=== PATIENT | female | born 1955 | race Caucasian/White ===

== ENCOUNTER 2018-10-19 13:06 | Emergency (ER) | payer BC, SELFPAY ==
[2018-10-19] VITALS (23 sets, daily range): BP systolic 96–184; BP diastolic 61–124; PULSE 77–110; RESP 15–30; TEMP 36.5–36.7; O2SAT 96–100
--- NOTE | 2018-10-19 13:20 | DI.CT_ITS ---
SYMPTOMS/DIAGNOSIS: NOTABLE HEMOPTYSIS, COUGH, LEFT CRACKLE CT ANGIOGRAPHY OF THE CHEST: CT angiography was performed with multi slice acquisition and multi planar and 3D reconstruction. CT scan of the chest was performed according to the pulmonary embolus protocol. There is no evidence of a pulmonary embolus. The thoracic aorta is intact. No evidence of aneurysm or dissection. The heart size is within normal limits. No significant pericardial effusion is seen. No evidence of right ventricular dysfunction is present. No evidence of thoracic adenopathy, pleural effusion or pneumothorax is identified. There is a rounded soft tissue mass-like area in the left lower lobe posteriorly sitting on the diaphragm. It measures 7.5 x 6.1 x 5.4 cm. Degenerative changes are seen in the spine. No aggressive osseous lesions are identified. IMPRESSION: 1. No evidence of a pulmonary embolus, thoracic aortic dissection or aneurysm. 2. A 7.5 x 6.1 x 5.4 cm soft tissue mass-like region in the left lower lobe. Primary diagnostic concern is for primary pulmonary carcinoma. Inflammatory or infectious etiology may be considered. PET scan and/or biopsy should be considered for further evaluation. The findings were discussed with Dr. Paniagua of the Emergency Department on the date of the examination.
--- NOTE | 2018-10-19 13:24 | W.ED.GENAD ---
Discharge Plan Disposition Patient Disposition: OTHER Condition: Stable Discharge Details Chief Complaint: RespSymp Clinical Impression: Cough with hemoptysis, Lung mass Primary Care Provider: Cr Pappas ED Provider: Reynaldo Paniagua Home Meds and New Rx's Prescriptions: No Action ibuprofen 200 MG capsule 600 mg PO Q6H PRN PRNRF: 0 Centrum Silver 1 EACH tablet 1 ea PO DAILY RF: 0 Medical Decision Making This is a pleasant 63-year-old female with past medical history of uterine cancer in 2012, blood clots in the past, nephrectomy because she gave 1 of her kidneys to her mother who had glomerulonephritis, who is on no blood thinners. She presents today for hemoptysis for the last 2 days and a cough that is been going on since August. Lung sounds demonstrate crackles notably in the left. She is tachycardic, but no hypoxic. Blood pressure is elevated. No signs of significant pallor. Differential includes malignancy, Laurel's, PE, chronic severe bronchitis. We will get a CT angiogram to evaluate after checking renal function. 6:15 PM Patient's laboratory workup has returned, hemoglobin and platelets are stable, PT PTT and INR stable. Renal function and electrolytes are normal. Troponin and EKG are benign. The patient has been typed and screened. CT scan results have returned and demonstrates evidence of a large 6 cm x 7 cm mass in her left lung. This is potentially malignancy. The patient's hemoptysis is continued but has shown some notable improvement while here in the ED. She is now coughing up much smaller amounts of blood at this current time. Her airway is clear, she shows no signs of significant respiratory distress at this time. No need for emergent airway, or intubation at this time. Patient clearly needs more definitive management of biopsy, and potential cardiothoracic surgery. We did contact [facility] but they state that they have no beds and refused transfer, we did contact the [facility], and state that they also have no beds are unable to transfer. They did offer potential bed placement in the next 48 hours, and recommended admission at our hospital. I did contact Dr. Avila and discussed the case with her, she states that she feels uncomfortable with the clinical nature of the patient and although she is stable now she does have the potential to decompensate if the bleeding does get worse, and no definitive management is available here. We did contact both [facility], and [facility], and they also do not have any bed availability. I did contact [facility], and they state that although their bed status is full, they would gladly accept the patient in the ED for assessment. I spoke with the Dr. Del Rio, she agreed to accept the patient in the ER to ER transfer. Patient shows no signs of airway compromise at this time, and does appear more stable. We did discuss potential intubation and understanding the risks the patient would like to hold off for the time being. Given her clinical stability at this time, and the improvement of her hemoptysis I do feel that this is reasonable. Patient will be transferred by [facility]. I have extensively reviewed the treatment plan with the patient. I have addressed all patient concerns at this time. I have also discussed the plan with the admitting physician and they agree with the current assessment and plan and have agreed to assume responsibility for the patient. All parties demonstrate verbal understanding and agreement with our assessment and plan at this time. EKG 13: 36 Rate 97, intervals normal, sinus rhythm, no significant ST elevations or depressions, inverted T wave in V1, lead III, no other significant abnormalities. CT ANGIOGRAPHY OF THE CHEST: CT angiography was performed with multi slice acquisition and multi planar and 3D reconstruction. CT scan of the chest was performed according to the pulmonary embolus protocol. There is no evidence of a pulmonary embolus. The thoracic aorta is intact. No evidence of aneurysm or dissection. The heart size is within normal limits. No significant pericardial effusion is seen. No evidence of right ventricular dysfunction is present. No evidence of thoracic adenopathy, pleural effusion or pneumothorax is identified. There is a rounded soft tissue mass-like area in the left lower lobe posteriorly sitting on the diaphragm. It measures 7.5 x 6.1 x 5.4 cm. Degenerative changes are seen in the spine. No aggressive osseous lesions are identified. IMPRESSION: 1. No evidence of a pulmonary embolus, thoracic aortic dissection or aneurysm. 2. A 7.5 x 6.1 x 5.4 cm soft tissue mass-like region in the left lower lobe. Primary diagnostic concern is for primary pulmonary carcinoma. Inflammatory or infectious etiology may be considered. PET scan and/or biopsy should be considered for further evaluation. The findings were discussed with Dr. Paniagua of the Emergency Department on the date of the examination. HPI General Date/Time Provider Initiated Documentation: 10/19/18 13:12. HPI Narrative: This is a 63-year-old female with a past medical history of uterine cancer in 2012, nephrectomy as a donation to her mother who had glomerulonephritis, history of blood clots in the past, and diabetes mellitus type 2 who presents today for evaluation of hemoptysis. Patient states that she had a cough that began this August, it was around the time of taking a trip to [place]. Since then the cough is continued however over the last 2 days it is notably worsened and she has been spitting up mild to moderate amounts of blood. She feels short of breath, and like there is something itching in her lungs. She denies any significant chest pain, arm neck or shoulder pain, history of cardiac disease, history of tobacco use, or familial history of lung cancer. She is not on any blood thinners. She has no other complaints at this time. No other modifying factors. Related Data Home Medications Medication Instructions Recorded Confirmed ibuprofen 600 mg PO Q6H PRN PRN 05/03/13 11/08/17 Centrum Silver 1 ea PO DAILY 11/04/17 11/08/17 Allergies Allergy/AdvReac Type Severity Reaction Status Date / Time adhesive Allergy Intermediate Bubble-type Unverified 10/19/18 13:15 rash oxycodone HCl [From Percocet] AdvReac Severe Nausea Unverified 10/19/18 13:15 Environmental Allergies Allergy Intermediate Watery Uncoded 10/19/18 13:15 eyes, sneezing General Stated Complaint: RespSymp DONALDO: 3 Review of Systems Review of Systems All systems reviewed & are unremarkable except as noted in HPI and below PFSH Medical History DM (diabetes mellitus) History of nephrectomy, unilateral Obesity Surgical History Colonoscopy - MAC (11/08/17) Nephrectomy Vaginal hysterectomy Family History Grandmother Malignant hyperthermia Colon cancer Maternal Aunt Colon cancer Social History Smoking and Tabacco status: Never Exam Narrative Exam Narrative: 1.Const: Well-nourished, Well-developed, appearing stated age 2.Eyes: PERRL, no conjunctival injection, and symmetrical lids. No conjunctival pallor. 3.ENT: Atraumatic external nose and ears. Moist MM. Neck: Symmetric, trachea midline, No thyromegaly. 4.CVS: +S1/S2, No murmurs or gallops. Peripheral pulses 2+ and equal in all extremities. Brisk capillary refill in all extremities. 5.RESP: Mildly tachypneic, notable crackles in the left lower lung izaguirre. No significant wheezes. Questionable rhonchi. Notable hemoptysis. 6.GI: Soft, Nontender/Nondistended, No hepatosplenomegaly. No guarding or rebound. 7.MSK: Normocephalic/Atraumatic, Extremities w/o deformity or ttp No cyanosis or clubbing, Normal movement of all extremities. No calf tenderness. 8.Skin: Warm, Dry. No rashes or lesions. 9.Neuro: metal baler II-XII grossly intact. Sensation grossly intact, no focal neurologic deficits. 10.Psych: (AAO) x3. Appropriate mood and affect Course Vital Signs Temperature 36.7 C 10/19/18 13:10 Pulse 110 H 10/19/18 13:10 Respiratory Rate 20 10/19/18 13:10 Blood Pressure 184/81 H 10/19/18 13:10 Pulse Oximetry 96 10/19/18 13:10 Temperature 36.7 C 10/19/18 13:10 Temperature Source Temporal Artery Scan 10/19/18 13:10 Pulse 110 H 10/19/18 13:10 Respiratory Rate 20 10/19/18 13:10 Respiratory Effort Non-Labored 10/19/18 13:15 Respiratory Depth Normal 10/19/18 13:15 Blood Pressure 184/81 H 10/19/18 13:10 Blood Pressure Position Sitting 10/19/18 13:10 Pulse Oximetry 96 10/19/18 13:10 Oxygen Delivery Method Room Air 10/19/18 13:10 Oxygen Flow Rate 0 10/19/18 13:10 Pain Level 0 10/19/18 13:10
--- NOTE | 2018-10-19 13:29 | ED.GENADUL_ITS ---
Discharge Plan Disposition Patient Disposition: OTHER Condition: Stable Discharge Details Chief Complaint: RespSymp Clinical Impression: Cough with hemoptysis, Lung mass Primary Care Provider: Cr Pappas ED Provider: Reynaldo Paniagua Home Meds and New Rx's Prescriptions: No Action ibuprofen 200 MG capsule 600 mg PO Q6H PRN PRNRF: 0 Centrum Silver 1 EACH tablet 1 ea PO DAILY RF: 0 Medical Decision Making This is a pleasant 63-year-old female with past medical history of uterine cancer in 2012, blood clots in the past, nephrectomy because she gave 1 of her kidneys to her mother who had glomerulonephritis, who is on no blood thinners. She presents today for hemoptysis for the last 2 days and a cough that is been going on since August. Lung sounds demonstrate crackles notably in the left. She is tachycardic, but no hypoxic. Blood pressure is elevated. No signs of significant pallor. Differential includes malignancy, Laurel's, PE, chronic severe bronchitis. We will get a CT angiogram to evaluate after checking renal function. 6:15 PM Patient's laboratory workup has returned, hemoglobin and platelets are stable, PT PTT and INR stable. Renal function and electrolytes are normal. Troponin and EKG are benign. The patient has been typed and screened. CT scan results have returned and demonstrates evidence of a large 6 cm x 7 cm mass in her left lung. This is potentially malignancy. The patient's hemoptysis is continued but has shown some notable improvement while here in the ED. She is now coughing up much smaller amounts of blood at this current time. Her airway is clear, she shows no signs of significant respiratory distress at this time. No need for emergent airway, or intubation at this time. Patient clearly needs more definitive management of biopsy, and potential cardiothoracic surgery. We did contact [facility] but they state that they have no beds and refused transfer, we did contact the [facility], and state that they also have no beds are unable to transfer. They did offer potential bed placement in the next 48 hours, and recommended admission at our hospital. I did contact Dr. Avila and discussed the case with her, she states that she feels uncomfortable with the clinical nature of the patient and although she is stable now she does have the potential to decompensate if the bleeding does get worse, and no definitive management is available here. We did contact both [facility], and [facility], and they also do not have any bed availability. I did contact [facility], and they state that although their bed status is full, they would gladly accept the patient in the ED for assessment. I spoke with the Dr. Del Rio, she agreed to accept the patient in the ER to ER transfer. Patient shows no signs of airway compromise at this time, and does appear more stable. We did discuss potential intubation and understanding the risks the patient would like to hold off for the time being. Given her clinical stability at this time, and the improvement of her hemoptysis I do feel that this is reasonable. Patient will be transferred by [facility]. I have extensively reviewed the treatment plan with the patient. I have addressed all patient concerns at this time. I have also discussed the plan with the admitting spencer sician and they agree with the current assessment and plan and have agreed to assume responsibility for the patient. All parties demonstrate verbal understanding and agreement with our assessment and plan at this time. EKG 13: 36 Rate 97, intervals normal, sinus rhythm, no significant ST elevations or depressions, inverted T wave in V1, lead III, no other significant abnormalities. CT ANGIOGRAPHY OF THE CHEST: CT angiography was performed with multi slice acquisition and multi planar and 3D reconstruction. CT scan of the chest was performed according to the pulmonary embolus protocol. There is no evidence of a pulmonary embolus. The thoracic aorta is intact. No evidence of aneurysm or dissection. The heart size is within normal limits. No significant pericardial effusion is seen. No evidence of right ventricular dysfunction is present. No evidence of thoracic adenopathy, pleural effusion or pneumothorax is identified. There is a rounded soft tissue mass-like area in the left lower lobe posteriorly sitting on the diaphragm. It measures 7.5 x 6.1 x 5.4 cm. Degenerative changes are seen in the spine. No aggressive osseous lesions are identified. IMPRESSION: 1. No evidence of a pulmonary embolus, thoracic aortic dissection or aneurysm. 2. A 7.5 x 6.1 x 5.4 cm soft tissue mass-like region in the left lower lobe. Primary diagnostic concern is for primary pulmonary carcinoma. Inflammatory or infectious etiology may be considered. PET scan and/or biopsy should be considered for further evaluation. The findings were discussed with Dr. Paniauga of the Emergency Department on the date of the examination. HPI General Date/Time Provider Initiated Documentation: 10/19/18 13:12 . HPI Narrative: This is a 63-year-old female with a past medical history of uterine cancer in 2012, nephrectomy as a donation to her mother who had glom erulonephritis, history of blood clots in the past, and diabetes mellitus type 2 who presents today for evaluation of hemoptysis. Patient states that she had a cough that began this August, it was around the time of taking a trip to [place]. Since then the cough is continued however over the last 2 days it is notably worsened and she has been spitting up mild to moderate amounts of blood. She feels short of breath, and like there is something itching in her lungs. She denies any significant chest pain, arm neck or shoulder pain, history of cardiac disease, history of tobacco use, or familial history of lung cancer. She is not on any blood thinners. She has no other complaints at this time. No other modifying factors. Related Data Home Medications Medication Instructions Recorded Confirmed ibuprofen 600 mg PO Q6H PRN PRN 05/03/13 11/08/17 Centrum Silver 1 ea PO DAILY 11/04/17 11/08/17 Allergies Allergy/AdvReac Type Severity Reaction Status Date / Time adhesive Allergy Intermediate Bubble-type Unverified 10/19/18 13:15 rash oxycodone HCl [From Percocet] AdvReac Severe Nausea Unverified 10/19/18 13:15 Environmental Allergies Allergy Intermediate Watery Uncoded 10/19/18 13:15 eyes, sneezing General Stated Complaint: RespSymp DONALDO: 3 Review of Systems Review of Systems All systems reviewed & are unremarkable except as noted in HPI and below PFSH Medical History DM (diabetes mellitus) History of nephrectomy, unilateral Obesity Surgical History Colonoscopy - MAC (11/08/17) Nephrectomy Vaginal hysterectomy Family History Grandmother Malignant hyperthermia Colon cancer Maternal Aunt Colon cancer Social History Smoking and Tabacco status: Never Exam Narrative Exam Narrative: 1.Const: Well-nourished, Well-developed, appearing stated age 2.Eyes: PERRL, no conjunctival injection, and symmetrical lids. No conjunctival pallor. 3.ENT: Atraumatic external nose and ears. Moist MM. Neck: Symmetric, trachea midline, No thyromegaly. 4.CVS: +S1/S2, No murmurs or gallops. Peripheral pulses 2+ and equal in all extremities. Brisk capillary refill in all extremities. 5.RESP: Mildly tachypneic, notable crackles in the left lower lung izaguirre. No significant wheezes. Questionable rhonchi. Notable hemoptysis. 6.GI: Soft, Nontender/Nondistended, No hepatosplenomegaly. No guarding or rebound. 7.MSK: Normocephalic/Atraumatic, Extremities w/o deformity or ttp No cyanosis or clubbing, Normal movement of all extremities. No calf tenderness. 8.Skin: Warm, Dry. No rashes or lesions. 9.Neuro: support team member II-XII grossly intact. Sensation grossly intact, no focal neurologic deficits. 10.Psych: (AAO) x3. Appropriate mood and affect Course Vital Signs Temperature 36.7 C 10/19/18 13:10 Pulse 110 H 10/19/18 13:10 Respiratory Rate 20 10/19/18 13:10 Blood Pressure 184/81 H 10/19/18 13:10 Pulse Oximetry 96 10/19/18 13:10 Temperature 36.7 C 10/19/18 13:10 Temperature Source Temporal Artery Scan 10/19/18 13:10 Pulse 110 H 10/19/18 13:10 Respiratory Rate 20 10/19/18 13:10 Respiratory Effort Non-Labored 10/19/18 13:15 Respiratory Depth Normal 10/19/18 13:15 Blood Pressure 184/81 H 10/19/18 13:10 Blood Pressure Position Sitting 10/19/18 13:10 Pulse Oximetry 96 10/19/18 13:10 Oxygen Delivery Method Room Air 10/19/18 13:10 Oxygen Flow Rate 0 10/19/18 13:10 Pain Level 0 10/19/18 13:10
[2018-10-19] MEDS: Normal Saline 1,000 ML 1000 ML IV (13:39)
[2018-10-19 13:45] LABS: Abs Immature Grans 0.03 k/cumm (0.0-0.09); Absolute Basophil Count 0.03 k/cumm (0.0-0.2); Absolute Eosinophil Count 0.17 k/cumm (0.0-0.7); Absolute Lymphocyte Count 1.85 k/cumm (1.2-3.4); Absolute Monocyte Count 0.64 k/cumm (0.11-0.7); Absolute Neutrophil Count 6.68 k/cumm (1.2-6.7); Basophils % 0.3; Eosinophils % 1.8; HGB 12.9 g/dL (12.0-15.5); Immature Grans % 0.3; Lymphocytes % 19.7; Mean Corp. HGB Concentration 31.5 g/dL (32.0-36.0); Mean Corpuscular Volume 89.1 fL (80-95); Mean Platelet Volume 10.7 fL (8.0-11.0); Monocytes % 6.8; Neutrophils % 71.1; Platelet Count 242 x1000/uL (130-400); RBC Distribution Width 13.2 % (11.7-14.6)
[2018-10-19 13:52] LABS: ALT 20 U/L (12-78); AST 14 U/L (15-37); Albumin 3.3 g/dL (3.4-5.0); Alkaline Phosphatase 84 U/L (46-116); Anion Gap 8.2 mmol/L (3-11); BUN 15 mg/dL (7-18); Bilirubin, Total 0.2 mg/dL (0.2-1.0); CO2 28.8 mmol/L (21.0-32.0); Calcium 9.1 mg/dL (8.5-10.1); Chloride 104 mmol/L (98-107); Glucose 205 mg/dL (70-100); Potassium 3.8 mmol/L (3.5-5.1); Sodium 141 mmol/L (136-145); Total Protein 7.8 g/dL (6.4-8.2)
[2018-10-19 13:59] LABS: BE 0.9 mmol/L (-3-3); HCO3 26 mmol/L (22-28); pCO2 41 mmHg (34-47); pH 7.41 (7.35-7.45); pO2 75 mmHg (83-108); sO2 95 % (94-98); tCO2 23 mmol/L (22-29)
[2018-10-19 14:01] LABS: PTT Activated 23.4 sec (21.0-31.4); Prothrombin Time 9.5 sec (9.3-11.0)
[2018-10-19 14:02] LABS: FIO2 0.21 %; FIO2L Room Air L; Site Right Brachial
[2018-10-19 14:12] LABS: Troponin I < 0.02 ng/mL (0.00-0.06)
[2018-10-19] MEDS: Omnipaque 350 MG/ML 100 ML BTL IJ (14:45)
== END 2018-10-19 19:10 | disposition other institution (70) ==
PROVIDERS: Emergency Provider Student in an Organized Health Care Education/Training Program; PCP General Practice
DX: R04.2 Hemoptysis (principal); R91.8 Other nonspecific abnormal finding of lung field
CPT/HCPCS: 36415; 71275; 80053; 82805; 86850; 86900; 86901; 93005; 96360; 99285; 84484; 85025; 85610; 85730; 93010; 99284; J3490

== ENCOUNTER 2019-02-17 16:13 | Outpatient (REF) | payer BC, SELFPAY ==
--- NOTE | 2019-02-17 15:50 | PAPFT_PTH ---
PATIENT: Myra Valencia LOC: [facility] U#:[id number] AGE/SX: 63/F ROOM: RE02/17/[address]: Karla Lakhani MD : [id number] BED: DIS: 02/17/2019 SPEC #: [id number] RECD: 02/17/19 17:17 STATUS: TESSIE REAreli #: [id number] VENECIA: 02/17/19 15:[address]: Karla Lakhani DEPT: [facility] Cytology RECD BY: Kate Spencer ENTERED: 02/17/19 17:17 SP TYPE: PAPFT OTHR DR: Cr Pappas Tissues: 1 - CX/ENDOCX FOR PAP SMEARS Procedures: PAP THIN PREP/[facility] Screening Comments: [id number] (VAGINAL HPV SENT TO [facility])
[2019-02-23 20:51] LABS: HPV High Risk type 16, PCR Negative (Negative); HPV High Risk type 18, PCR Negative (Negative); HPV other High Risk types, PCR Negative (Negative); Specimen Source VAGINAL
== END 2019-02-17 16:33 ==
LOC: LBN 16:13
PROVIDERS: PCP General Practice; Visit Provider Obstetrics & Gynecology
DX: Z12.4 Encounter for screening for malignant neoplasm of cervix (principal); Z11.51 Encounter for screening for human papillomavirus (HPV)
CPT/HCPCS: 87624; 88142

== ENCOUNTER 2019-02-23 01:07 | Outpatient (CLI) | payer BC, SELFPAY ==
--- NOTE | 2019-02-23 10:24 | DI.MAMMO_ITS ---
SYMPTOM/DIAGNOSIS: SCREENING, Z12.31 MAMMOGRAM: 02/23 Mammograms were interpreted according to the usual protocol including computer analysis with CAD system, tomosynthesis and C view imaging. The breasts are of moderate density with fairly symmetrical distribution of fibroglandular tissue. No dominant mass or clumped microcalcification is identified in either breast. The current examination is compared with previous examinations including 08/2017 and there has been no gross interval change in appearance in comparison with the previous studies. CONCLUSION: No specific evidence of malignancy at this time. Routine screening examinations are suggested at yearly intervals in this age group according to the ACS/ACR guidelines. Category 1, breast density category B. MQSA ASSESSMENT OF FINDINGS: Negative. Category 1. Patient will receive a letter notifying them of these results. BI-RADS category B. There are scattered areas of fibroglandular density.
== END 2019-02-23 01:27 ==
PROVIDERS: PCP General Practice; Visit Provider Obstetrics & Gynecology
DX: Z12.31 Encounter for screening mammogram for malignant neoplasm of breast (principal)
CPT/HCPCS: 77063; 77067

== ENCOUNTER 2019-03-07 07:17 | Outpatient (CLI) | payer BC, SELFPAY ==
[2019-03-07 07:46] LABS: Abs Immature Grans 0.02 k/cumm (0.0-0.09); Absolute Basophil Count 0.03 k/cumm (0.0-0.2); Absolute Eosinophil Count 0.23 k/cumm (0.0-0.7); Absolute Lymphocyte Count 1.68 k/cumm (1.2-3.4); Absolute Neutrophil Count 4.13 k/cumm (1.2-6.7); Basophils % 0.4; Eosinophils % 3.4; HCT 40.3 % (36.0-46.0); HGB 12.8 g/dL (12.0-15.5); Immature Grans % 0.3; Lymphocytes % 25.1; Mean Corp. HGB Concentration 31.8 g/dL (32.0-36.0); Mean Corpuscular Hemoglobin 28.4 pg (27.0-33.0); Mean Corpuscular Volume 89.4 fL (80-95); Mean Platelet Volume 10.8 fL (8.0-11.0); Neutrophils % 61.8; Platelet Count 223 x1000/uL (130-400); RBC 4.51 m/cumm (4.00-5.20); RBC Distribution Width 14.8 % (11.7-14.6); White Blood Cell Count 6.69 k/cumm (4.4-10.8)
[2019-03-07 08:06] LABS: ALT 19 U/L (12-78); AST 11 U/L (15-37); Albumin 3.3 g/dL (3.4-5.0); Alkaline Phosphatase 77 U/L (46-116); Anion Gap 8.9 mmol/L (3-11); BUN 19 mg/dL (7-18); Bilirubin, Total 0.2 mg/dL (0.2-1.0); CO2 26.1 mmol/L (21.0-32.0); CREATININE 0.98 mg/dL (0.55-1.02); Calcium 8.6 mg/dL (8.5-10.1); Chloride 107 mmol/L (98-107); Estimated GFR 57.32 (mL/min/1.73m2); Glucose 167 mg/dL (70-100); Potassium 4.3 mmol/L (3.5-5.1); Sodium 142 mmol/L (136-145); Total Protein 6.9 g/dL (6.4-8.2)
== END 2019-03-07 07:37 ==
PROVIDERS: PCP General Practice; Visit Provider Obstetrics & Gynecology Gynecologic Oncology
DX: C54.1 Malignant neoplasm of endometrium (principal)
CPT/HCPCS: 36415; 80053; 85025

== ENCOUNTER 2019-03-22 07:44 | Outpatient (CLI) | payer BC, SELFPAY ==
[2019-03-22 09:11] LABS: Abs Immature Grans 0.01 k/cumm (0.0-0.09); Absolute Basophil Count 0.01 k/cumm (0.0-0.2); Absolute Eosinophil Count 0.17 k/cumm (0.0-0.7); Absolute Lymphocyte Count 0.61 k/cumm (1.2-3.4); Absolute Monocyte Count 0.07 k/cumm (0.11-0.7); Absolute Neutrophil Count 2.49 k/cumm (1.2-6.7); Basophils % 0.3; Eosinophils % 5.1; HGB 12.9 g/dL (12.0-15.5); Immature Grans % 0.3; Lymphocytes % 18.2; Mean Corp. HGB Concentration 31.5 g/dL (32.0-36.0); Mean Corpuscular Volume 89.1 fL (80-95); Mean Platelet Volume 12.5 fL (8.0-11.0); Monocytes % 2.1; Platelet Count 124 x1000/uL (130-400); RBC Distribution Width 14.1 % (11.7-14.6); White Blood Cell Count 3.36 k/cumm (4.4-10.8)
== END 2019-03-22 08:04 ==
PROVIDERS: PCP General Practice; Visit Provider Obstetrics & Gynecology Gynecologic Oncology
DX: C54.1 Malignant neoplasm of endometrium (principal)
CPT/HCPCS: 36415; 85025

== ENCOUNTER 2019-04-04 09:24 | Outpatient (CLI) | payer BC, SELFPAY ==
[2019-04-04 10:04] LABS: Abs Immature Grans 0.02 k/cumm (0.0-0.09); Absolute Basophil Count 0.01 k/cumm (0.0-0.2); Absolute Eosinophil Count 0.09 k/cumm (0.0-0.7); Absolute Lymphocyte Count 1.54 k/cumm (1.2-3.4); Absolute Neutrophil Count 2.67 k/cumm (1.2-6.7); Basophils % 0.2; Eosinophils % 1.9; HCT 39.4 % (36.0-46.0); HGB 12.5 g/dL (12.0-15.5); Immature Grans % 0.4; Lymphocytes % 31.9; Mean Corp. HGB Concentration 31.7 g/dL (32.0-36.0); Mean Corpuscular Hemoglobin 28.4 pg (27.0-33.0); Mean Corpuscular Volume 89.5 fL (80-95); Mean Platelet Volume 10.7 fL (8.0-11.0); Monocytes % 10.4; Neutrophils % 55.2; Platelet Count 209 x1000/uL (130-400); RBC Distribution Width 14.3 % (11.7-14.6); White Blood Cell Count 4.83 k/cumm (4.4-10.8)
[2019-04-04 10:15] LABS: ALT 23 U/L (12-78); AST 9 U/L (15-37); Albumin 3.3 g/dL (3.4-5.0); Alkaline Phosphatase 75 U/L (46-116); Anion Gap 7.2 mmol/L (3-11); BUN 21 mg/dL (7-18); Bilirubin, Total 0.1 mg/dL (0.2-1.0); CO2 27.8 mmol/L (21.0-32.0); CREATININE 1.17 mg/dL (0.55-1.02); Calcium 8.6 mg/dL (8.5-10.1); Chloride 107 mmol/L (98-107); Estimated GFR 46.72 (mL/min/1.73m2); Glucose 171 mg/dL (70-100); Potassium 4.4 mmol/L (3.5-5.1); Sodium 142 mmol/L (136-145); Total Protein 7.1 g/dL (6.4-8.2)
== END 2019-04-04 09:44 ==
PROVIDERS: PCP General Practice; Visit Provider Internal Medicine Hematology & Oncology
DX: C54.1 Malignant neoplasm of endometrium (principal)
CPT/HCPCS: 36415; 80053; 85025

== ENCOUNTER 2019-04-27 07:27 | Outpatient (CLI) | payer BC, SELFPAY ==
[2019-04-27 07:52] LABS: Abs Immature Grans 0.05 k/cumm (0.0-0.09); Absolute Basophil Count 0.02 k/cumm (0.0-0.2); Absolute Eosinophil Count 0.08 k/cumm (0.0-0.7); Absolute Lymphocyte Count 1.28 k/cumm (1.2-3.4); Absolute Monocyte Count 0.37 k/cumm (0.11-0.7); Absolute Neutrophil Count 3.34 k/cumm (1.2-6.7); Basophils % 0.4; Eosinophils % 1.6; HCT 37.6 % (36.0-46.0); HGB 12.1 g/dL (12.0-15.5); Lymphocytes % 24.9; Mean Corp. HGB Concentration 32.2 g/dL (32.0-36.0); Mean Corpuscular Hemoglobin 28.7 pg (27.0-33.0); Mean Corpuscular Volume 89.3 fL (80-95); Monocytes % 7.2; Neutrophils % 64.9; Platelet Count 208 x1000/uL (130-400); RBC 4.21 m/cumm (4.00-5.20); RBC Distribution Width 14.3 % (11.7-14.6); White Blood Cell Count 5.14 k/cumm (4.4-10.8)
[2019-04-27 08:06] LABS: ALT 26 U/L (14-59); AST 12 U/L (15-37); Albumin 3.1 g/dL (3.4-5.0); Alkaline Phosphatase 93 U/L (46-116); Anion Gap 8.9 mmol/L (3-11); BUN 21 mg/dL (7-18); Bilirubin, Total 0.2 mg/dL (0.2-1.0); CO2 28.1 mmol/L (21.0-32.0); Calcium 8.9 mg/dL (8.5-10.1); Chloride 105 mmol/L (98-107); Glucose 238 mg/dL (70-100); Potassium 4.3 mmol/L (3.5-5.1); Sodium 142 mmol/L (136-145); Total Protein 7.1 g/dL (6.4-8.2)
== END 2019-04-27 07:47 ==
PROVIDERS: PCP General Practice; Visit Provider Internal Medicine Hematology & Oncology
DX: C54.1 Malignant neoplasm of endometrium (principal)
CPT/HCPCS: 36415; 80053; 85025

== ENCOUNTER 2019-05-18 08:05 | Outpatient (CLI) | payer BC, SELFPAY ==
[2019-05-18 08:21] LABS: Abs Immature Grans 0.02 k/cumm (0.0-0.09); Absolute Eosinophil Count 0.03 k/cumm (0.0-0.7); Absolute Lymphocyte Count 0.94 k/cumm (1.2-3.4); Absolute Monocyte Count 0.37 k/cumm (0.11-0.7); Eosinophils % 0.9; HCT 35.2 % (36.0-46.0); HGB 11.3 g/dL (12.0-15.5); Immature Grans % 0.6; Lymphocytes % 29.7; Mean Corp. HGB Concentration 32.1 g/dL (32.0-36.0); Mean Corpuscular Hemoglobin 28.8 pg (27.0-33.0); Mean Corpuscular Volume 89.8 fL (80-95); Mean Platelet Volume 9.9 fL (8.0-11.0); Monocytes % 11.7; Neutrophils % 57.1; RBC 3.92 m/cumm (4.00-5.20); RBC Distribution Width 15.8 % (11.7-14.6); White Blood Cell Count 3.16 k/cumm (4.4-10.8)
[2019-05-18 08:41] LABS: ALT 30 U/L (14-59); AST 16 U/L (15-37); Albumin 3.3 g/dL (3.4-5.0); Alkaline Phosphatase 87 U/L (46-116); BUN 16 mg/dL (7-18); Bilirubin, Total 0.3 mg/dL (0.2-1.0); CREATININE 0.88 mg/dL (0.55-1.02); Calcium 8.6 mg/dL (8.5-10.1); Chloride 108 mmol/L (98-107); Diff Comment Diff Reviewed; Glucose 196 mg/dL (70-100); Platelet Count 98 x1000/uL (130-400); Potassium 4.1 mmol/L (3.5-5.1); RBC Morphology Normal; Sodium 144 mmol/L (136-145); Total Protein 6.8 g/dL (6.4-8.2)
== END 2019-05-18 08:25 ==
PROVIDERS: PCP General Practice; Visit Provider Internal Medicine Hematology & Oncology
DX: C54.1 Malignant neoplasm of endometrium (principal)
CPT/HCPCS: 36415; 80053; 85025

== ENCOUNTER 2019-06-08 07:24 | Outpatient (CLI) | payer BC, SELFPAY ==
[2019-06-08 07:53] LABS: ALT 24 U/L (14-59); AST 15 U/L (15-37); Albumin 3.2 g/dL (3.4-5.0); Alkaline Phosphatase 89 U/L (46-116); Anion Gap 7.4 mmol/L (3-11); BUN 12 mg/dL (7-18); Bilirubin, Total 0.3 mg/dL (0.2-1.0); CO2 28.6 mmol/L (21.0-32.0); CREATININE 1.05 mg/dL (0.55-1.02); Calcium 8.6 mg/dL (8.5-10.1); Chloride 108 mmol/L (98-107); Estimated GFR 52.93 (mL/min/1.73m2); Glucose 185 mg/dL (70-100); Potassium 4.3 mmol/L (3.5-5.1); Sodium 144 mmol/L (136-145); Total Protein 6.7 g/dL (6.4-8.2)
[2019-06-08 08:02] LABS: Abs Immature Grans 0.01 k/cumm (0.0-0.09); Absolute Eosinophil Count 0.03 k/cumm (0.0-0.7); Absolute Lymphocyte Count 1.07 k/cumm (1.2-3.4); Absolute Monocyte Count 0.23 k/cumm (0.11-0.7); Absolute Neutrophil Count 1.59 k/cumm (1.2-6.7); HCT 29.7 % (36.0-46.0); HGB 9.7 g/dL (12.0-15.5); Immature Grans % 0.3; Lymphocytes % 36.5; Mean Corp. HGB Concentration 32.7 g/dL (32.0-36.0); Mean Platelet Volume 10.4 fL (8.0-11.0); Monocytes % 7.8; Neutrophils % 54.4; RBC 3.23 m/cumm (4.00-5.20); RBC Distribution Width 18.4 % (11.7-14.6); White Blood Cell Count 2.93 k/cumm (4.4-10.8)
[2019-06-08 08:21] LABS: Platelet Count 67 x1000/uL (130-400)
[2019-06-08 08:22] LABS: Anisocytosis 2+; Diff Comment RBC Morph Reviewed; Hypochromasia 1+; Polychromasia Present
== END 2019-06-08 07:44 ==
PROVIDERS: PCP General Practice; Visit Provider Internal Medicine Hematology & Oncology
DX: C54.1 Malignant neoplasm of endometrium (principal)
CPT/HCPCS: 36415; 80053; 85025

== ENCOUNTER 2019-06-15 07:50 | Outpatient (CLI) | payer BC, SELFPAY ==
[2019-06-15 08:04] LABS: Abs Immature Grans 0.02 k/cumm (0.0-0.09); Absolute Basophil Count 0.01 k/cumm (0.0-0.2); Absolute Eosinophil Count 0.02 k/cumm (0.0-0.7); Absolute Lymphocyte Count 0.88 k/cumm (1.2-3.4); Absolute Monocyte Count 0.33 k/cumm (0.11-0.7); Absolute Neutrophil Count 2.14 k/cumm (1.2-6.7); Basophils % 0.3; Eosinophils % 0.6; HCT 32.2 % (36.0-46.0); HGB 10.5 g/dL (12.0-15.5); Immature Grans % 0.6; Lymphocytes % 25.9; Mean Corp. HGB Concentration 32.6 g/dL (32.0-36.0); Mean Corpuscular Hemoglobin 30.6 pg (27.0-33.0); Mean Corpuscular Volume 93.9 fL (80-95); Mean Platelet Volume 9.3 fL (8.0-11.0); Monocytes % 9.7; Neutrophils % 62.9; Platelet Count 253 x1000/uL (130-400); RBC 3.43 m/cumm (4.00-5.20); RBC Distribution Width 19.7 % (11.7-14.6)
[2019-06-15 08:26] LABS: ALT 26 U/L (14-59); AST 16 U/L (15-37); Albumin 3.4 g/dL (3.4-5.0); Alkaline Phosphatase 90 U/L (46-116); Anion Gap 8.8 mmol/L (3-11); BUN 15 mg/dL (7-18); Bilirubin, Total 0.3 mg/dL (0.2-1.0); CO2 27.2 mmol/L (21.0-32.0); CREATININE 1.09 mg/dL (0.55-1.02); Calcium 8.6 mg/dL (8.5-10.1); Chloride 107 mmol/L (98-107); Glucose 180 mg/dL (70-100); Potassium 4.3 mmol/L (3.5-5.1); Sodium 143 mmol/L (136-145)
== END 2019-06-15 08:10 ==
PROVIDERS: PCP General Practice; Visit Provider Internal Medicine Hematology & Oncology
DX: C54.1 Malignant neoplasm of endometrium (principal)
CPT/HCPCS: 36415; 80053; 85025

== ENCOUNTER 2019-07-06 07:33 | Outpatient (CLI) | payer BC, SELFPAY ==
[2019-07-06 08:02] LABS: Abs Immature Grans 0.02 k/cumm (0.0-0.09); Absolute Basophil Count 0.01 k/cumm (0.0-0.2); Absolute Eosinophil Count 0.04 k/cumm (0.0-0.7); Absolute Lymphocyte Count 0.89 k/cumm (1.2-3.4); Absolute Neutrophil Count 1.79 k/cumm (1.2-6.7); Basophils % 0.3; Eosinophils % 1.3; HCT 30.1 % (36.0-46.0); HGB 9.8 g/dL (12.0-15.5); Immature Grans % 0.7; Lymphocytes % 29.2; Mean Corp. HGB Concentration 32.6 g/dL (32.0-36.0); Mean Corpuscular Hemoglobin 32.6 pg (27.0-33.0); Mean Platelet Volume 9.4 fL (8.0-11.0); Monocytes % 9.8; Neutrophils % 58.7; RBC 3.01 m/cumm (4.00-5.20); RBC Distribution Width 20.3 % (11.7-14.6); White Blood Cell Count 3.05 k/cumm (4.4-10.8)
[2019-07-06 08:11] LABS: ALT 32 U/L (14-59); AST 16 U/L (15-37); Albumin 3.4 g/dL (3.4-5.0); Alkaline Phosphatase 87 U/L (46-116); Anion Gap 8.6 mmol/L (3-11); BUN 17 mg/dL (7-18); Bilirubin, Total 0.3 mg/dL (0.2-1.0); CO2 26.4 mmol/L (21.0-32.0); Calcium 8.7 mg/dL (8.5-10.1); Chloride 108 mmol/L (98-107); Glucose 193 mg/dL (70-100); Potassium 4.1 mmol/L (3.5-5.1); Sodium 143 mmol/L (136-145); Total Protein 6.8 g/dL (6.4-8.2)
[2019-07-06 08:29] LABS: Anisocytosis 2+; Diff Comment RBC Morph Reviewed; Platelet Count 116 x1000/uL (130-400); Polychromasia Present
== END 2019-07-06 07:53 ==
PROVIDERS: PCP General Practice; Visit Provider Internal Medicine Hematology & Oncology
DX: C54.1 Malignant neoplasm of endometrium (principal)
CPT/HCPCS: 36415; 80053; 85025

== ENCOUNTER 2019-11-02 03:05 | Outpatient (CLI) | payer BC, SELFPAY ==
--- NOTE | 2019-11-02 15:30 | DIABASSESS_ITS ---
DESCRIPTION: Myra Valencia presents for medical nutrition therapy for diabetes diagnosed a couple of years ago. A1c 8.8 in 2018 now at 7.4. FOOD: At diagnosis she purchased a food plan and has been following this for the past year+. She has oatmeal for breakfast; salad from [employer] for lunch; pasta, meat for supper. She denies snacking. She uses a small plate. She appreciated many of the suggestions from her program and the principles of 'clean' eating. Myra documents her food every dya as well as noting any skipped meals. She states she lost 12 pounds since following her plan. MONITORING: fasting only now 140-160s down from 180-200s. PHYSICAL ACTIVITY: Myra admits she is physically active only when her grandchildren encourage her. She is also beginning to be more active as part of her work obligations. STRESS: Myra loves her work and has no plan to retire. She denies stress or depression. She has learned how to manage stressors effectively. She takes no medications for diabetes. INTERVENTION: Myra is interested in learning more about food and how to manage her blood sugars. Reviewed diabetes food guide focused on increasing vegetables at supper; review of label reading. Discussed mindful eating principles and she follows many of them already. 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 This does not limit her ability to be physically active and she is aware that this is a powerful diabetes management tool. Discussed options for increasing physical activity at work and after work. Myra is engaged in the conversation and is interested in [facility] Diabetes in November; she is given the brochure. PLAN: Myra will monitor her blood sugars before supper or before bed occasionally increase her physical activity with her grandchildren now that the weather is improved. eat more slowly attempting to take 20 minuts to eat her meal; she will have vegetables at supper Individual 3 MNT for 50 minutes No DM group education series being offered at this time.
== END 2019-11-02 03:25 ==
PROVIDERS: PCP Nurse Practitioner; Visit Provider Dietitian, Registered
DX: Z11.9 Encounter for screening for infectious and parasitic diseases, unspecified (principal); Z71.3 Dietary counseling and surveillance
CPT/HCPCS: 97802

== ENCOUNTER 2020-02-26 01:46 | Outpatient (CLI) | payer BC, SELFPAY ==
--- NOTE | 2020-02-26 07:15 | DI.MAMMO_ITS ---
EXAM: MG MAMMO SCREENING CLINICAL HISTORY: screening, Z12.39 TECHNIQUE: Bilateral full field digital CC and MLO mammographic images were obtained with 3D tomosyn thesis and utilizing computer aided detection (CAD). COMPARISON: Available for comparison. FINDINGS: Masses/Architectural Distortion: None seen. Microcalcifications: No suspicious pleomorphic-type are seen. Skin Thickening/Nipple Retraction: None. IMPRESSION: 1. No significant interval change with no specific features of malignancy noted. 2. Unless there is more urgent need, screening mammography is recommended, as per [employer] guidelines. BI-RADS Category 1 - Negative Breast Density - Category B - Scattered areas of fibroglandular density A negative radiographic report should not delay biopsy if a dominant or clinically suspicious mass is present. Up to ten percent of cancers are not identified on mammography. A negative report may reinforce clinical impression. Adenosis and dense breasts may obscure an underlying neoplasm. False positive reports average 6 to 10%. Patient will receive a letter notifying them of these results.
== END 2020-02-26 02:06 ==
PROVIDERS: PCP Nurse Practitioner; Visit Provider Nurse Practitioner
DX: Z12.31 Encounter for screening mammogram for malignant neoplasm of breast (principal)
CPT/HCPCS: 77063; 77067

== ENCOUNTER 2020-07-01 08:54 | Outpatient (CLI) | payer BC, SELFPAY ==
[2020-07-05 22:53] LABS: Patient Race White; SARS-CoV-2 RNA Undetected (Undetected); SARS-CoV-2 Specimen Source Nasal
== END 2020-07-01 09:14 ==
PROVIDERS: PCP Nurse Practitioner; Visit Provider Family Medicine
DX: Z11.59 Encounter for screening for other viral diseases (principal); Z71.84 Encounter for health counseling related to travel
CPT/HCPCS: U0003

== ENCOUNTER 2020-07-24 02:42 | Outpatient (CLI) | payer BC, SELFPAY ==
[2020-07-24 14:44] LABS: HCT 41.5 % (36.0-46.0); HGB 13.3 g/dL (11.2-15.7); MCH 29.1 pg (27.0-33.0); MCV 90.8 fL (80-95); MPV 10.6 fL (8.0-11.0); Platelet Count 191 10^3/uL (130-400); RBC 4.57 10^6/uL (3.93-5.22); RDW-SD 42.9 fL; WBC 7.48 10^3/uL (4.4-10.8)
[2020-07-24 16:28] LABS: ALT 27 U/L (14-59); AST 14 U/L (15-37); Albumin 3.7 g/dL (3.4-5.0); Alkaline Phosphatase 91 U/L (46-116); Anion Gap 5.9 mmol/L (3-11); BUN 16 mg/dL (7-18); Bilirubin, Total 0.4 mg/dL (0.2-1.0); CO2 30.1 mmol/L (21.0-32.0); CREATININE 1.03 mg/dL (0.55-1.02); Calculated LDL 91 mg/dL (<100); Chloride 105 mmol/L (98-107); Cholesterol 176 mg/dL (<200); Estimated GFR 53.95 (mL/min/1.73m2); Glucose 142 mg/dL (74-106); HDL Cholesterol 67 mg/dL (40-60); Potassium 4.1 mmol/L (3.5-5.1); Sodium 141 mmol/L (136-145); Total Protein 6.7 g/dL (6.4-8.2); Triglyceride 91 mg/dL (<150)
== END 2020-07-24 03:02 ==
PROVIDERS: PCP Nurse Practitioner; Visit Provider Nurse Practitioner
DX: E11.9 Type 2 diabetes mellitus without complications (principal); R73.9 Hyperglycemia, unspecified; E66.9 Obesity, unspecified
CPT/HCPCS: 36415; 80053; 80061; 85027

== ENCOUNTER 2020-09-27 02:24 | Outpatient (CLI) | payer BC, SELFPAY ==
[2020-09-28 11:57] LABS: COVID-19 RT-PCR UVMMC Result Negative (Negative)
== END 2020-09-27 02:44 ==
PROVIDERS: PCP Nurse Practitioner; Visit Provider Nurse Practitioner
DX: Z20.822 Contact with and (suspected) exposure to COVID-19 (principal)
CPT/HCPCS: U0003

== ENCOUNTER 2021-01-01 04:36 | Outpatient (CLI) | payer BC, SELFPAY ==
[2021-01-01 07:35] LABS: HCT 44.1 % (36.0-46.0); HGB 13.9 g/dL (11.2-15.7); MCH 28.9 pg (27.0-33.0); MCHC 31.5 % (32.0-36.0); MCV 91.7 fL (80-95); MPV 10.5 fL (8.0-11.0); Platelet Count 188 10^3/uL (130-400); RBC 4.81 10^6/uL (3.93-5.22); RDW 13.1 % (11.7-14.6); RDW-SD 44.3 fL; WBC 6.75 10^3/uL (4.4-10.8)
[2021-01-01 08:43] LABS: ALT 25 U/L (14-59); AST 13 U/L (15-37); Albumin 3.5 g/dL (3.4-5.0); Alkaline Phosphatase 84 U/L (46-116); Anion Gap 9.9 mmol/L (3-11); BUN 19 mg/dL (7-18); Bilirubin, Total 0.4 mg/dL (0.2-1.0); CO2 27.1 mmol/L (21.0-32.0); CREATININE 1.1 mg/dL (0.55-1.02); Calcium 8.8 mg/dL (8.5-10.1); Chloride 111 mmol/L (98-107); Estimated GFR 49.85 (mL/min/1.73m2); Glucose 169 mg/dL (74-106); Potassium 4.1 mmol/L (3.5-5.1); Sodium 148 mmol/L (136-145); Total Protein 6.5 g/dL (6.4-8.2)
[2021-01-01 10:29] LABS: Calculated LDL 105 mg/dL (<100); Cholesterol 178 mg/dL (<200); HDL Cholesterol 57 mg/dL (40-60); Triglyceride 80 mg/dL (<150)
== END 2021-01-01 04:37 | disposition home or self-care (01) ==
LOC: LBO 04:36
PROVIDERS: PCP Nurse Practitioner; Visit Provider Nurse Practitioner
DX: I10 Essential (primary) hypertension (principal); E11.9 Type 2 diabetes mellitus without complications
CPT/HCPCS: 36415; 80053; 80061; 85027

== ENCOUNTER 2021-03-24 09:52 | Day surgery (SDC) | payer BC, SELFPAY ==
--- NOTE | 2021-03-24 06:50 | COLE_ITS ---
Date of service: 03/24/21 Time of Service: 11:15 Colonoscopy Report Date of procedure: 03/24/21 Pre-op diagnosis general: Colon cancer screening for Hx of polyps Post-op diagnosis procedure note: same (polyps and diverticulosis) Procedure: Colonoscopy with polypectomy Surgeon: Vivien Grissom Anesthesia Type: General:No Airway (ASA 3/Cr Mcnair, PATEL) Estimated blood loss (mL): 3 Pathology: other (cecal polyp, ascending polyp and transverse polyp) Complications: None Disposition: same day Indications: The patient is here for Colonoscopy pre-op. Her last screening was in 2018, which was remarkable for tubular adenomatous polyps, sessile serrated and hyperplastic polyps. She has no family history of colon cancer. She has not had any bowel habit changes. -Discussed colonoscopy bowel prep as well as the procedure. Discussed possible complications of the procedure to include bleeding, pain, perforation, missed small lesion/polyp, sore throat, aspiration and adverse reaction to the medications. Questions were answered to patient?s satisfaction. No guarantees were implied or given. Prep: Miralax/Dulcolax Procedure Start Time: 11:15 Procedure End Time: 11:38 Retraction Time: 12 minutes Findings: 3 small polyps mild diverticulosis Procedure Description: After informed consent was obtained the patient was taken to the procedure room and placed in a left decubitous position. Monitors were applied and a time out was done. The patients name, date of , procedure, allergies to medications and metal in their body was reviewed. The patient was then sedated. Once sedated and comfortable a rectal exam was done. E xternal exam was normal. Internal exam revealed a normal sphincter tone and no palpable masses. The scope was then introduced and retro-flexed. No internal hemorrhoids, polyps or masses were identified on retro-flexion. The scope was then advanced to the cecum without difficulty. The ileocecal vlave and appendiceal orifice were identified. The prep was adequate. The scope was then slowly retracted over 12 minutes back into the rectum. Polyps were removed with cold forceps in the cecum, ascending colon and transverse colon. There was mild sigmoid diverticulosis noted. The scope was removed and the patient was woken up and taken back to Same day surgery in stable condition. The patient tolerated the procedure well and there were no immediate complications. Follow up: The patient should follow up in 5 years unless they develop changes in bowel habits or other new gastrointestinal complaints.
--- NOTE | 2021-03-24 06:52 | W.PM.DSUDISC ---
Discharge Plan Disposition Patient Disposition: HOME Condition: Good Discharge Details Reason For Visit: Colonoscopy Attending Provider: Vivien Grissom Primary Care Provider: Lindsay Ribeiro Home Meds and New Rx's Prescriptions: Continued ascorbic acid (vitamin C) 100 mg tablet 100 mg PO DAILY RF: 0 cholecalciferol (vitamin D3) 1,000 unit capsule 1,000 unit PO DAILY RF: 0 letrozole 2.5 mg tablet 2.5 mg PO DAILY RF: 0 Jardiance 25 mg tablet 25 mg PO DAILY Qty: 90 RF: 3 ibuprofen 200 MG capsule 600 mg PO Q6H PRN PRNRF: 0 Discontinued bisacodyl [Dulcolax (bisacodyl)] 5 mg tablet,delayed release (DR/EC) 5 mg PO ONCE Qty: 4 RF: 0 polyethylene glycol 3350 17 gram/dose powder 238 g PO ONCE Qty: 238 RF: 0 Discharge Instructions Instructions: Colorectal Polyps (GEN), Diverticulosis (DC) Additional Instructions: Findings: 3 small polyps mild diverticulosis Follow up: 5 years Please call if you develop: fevers >101.5 Nausea or Vomiting Abdominal pain that is not transient Rectal bleeding that is more then a tbsp A hard abdomen and inability to pass gas DAY SURGERY UNIT POST ENDOSCOPY INSTRUCTIONS Instructions for everyone who is given Anesthesia: For your safety, please do the following for the next 24 Hours: a. Do not drive or operate dangerous equipment b. Do not drink alcohol beverages or use any recreational drugs for the first 24 hours or while taking pain medications. The medications in your body may have a reaction that can be dangerous. c. Do not make any important decisions or sign any important papers 1. Generally there are no restrictions on your activity after a day or so has gone by, but you may feel a bit fatigued for a few days. 2. After you arrive home you may have a light meal and return to a normal diet as you can tolerate it without feeling sick to your stomach. 3. After surgery, you may feel pain or discomfort. This should be only transient, but if it persists please contact your doctor. 4. If there are any questions regarding the findings of your procedure, please feel free to contact your doctor. 6. If you are unable to contact your doctor with a problem, contact the hospital at [phone]. 7. Continue all your regular medications unless directed otherwise. I understand the above instructions and have no questions. Signature of Patient or Responsible Adult Escort Date/Time Name of Responsible Adult Escort Signature of Nurse Date/Time Activity:: Activity as Tolerated Diet:: High fiber Discharge Orders Discharge Orders: Discharge Order (Routine); Ordered 03/24/21 Ordered By: Vivien Grissom
[2021-03-24 10:19] VITALS: BP 137/66; PULSE 94; RESP 18; TEMP 36.5; O2SAT 96
--- NOTE | 2021-03-24 10:35 | W.ANESPRE ---
General Info Date of Service Date Performed: 03/24/21 Height: 4 ft 1 in Weight: 89.3 kg Body Mass Index (BMI): 57.6 Surgical Procedure: Operation Date: 03/24/21 10:35 Proposed Procedures Side Surgeon p Colonoscopy Vivien Grissom MD Meds Allergies and Home Medications Allergies Allergy/AdvReac Type Severity Reaction Status Date / Time adhesive Allergy Intermediate Bubble-type Verified 03/21/21 10:51 rash oxycodone HCl [From Percocet] AdvReac Severe Nausea Verified 03/21/21 10:51 Environmental Allergies Allergy Intermediate Watery Uncoded 03/21/21 10:51 eyes, sneezing Home Medication Medication Instructions Recorded ibuprofen 600 mg PO Q6H PRN PRN 05/03/13 ascorbic acid (vitamin C) 100 mg 100 mg PO DAILY 02/17/19 tablet cholecalciferol (vitamin D3) 25 1,000 unit PO DAILY 02/17/19 mcg (1,000 unit) capsule letrozole 2.5 mg tablet 2.5 mg PO DAILY 07/22/20 empagliflozin 25 mg tablet 25 mg PO DAILY #90 tab 09/24/20 bisacodyl 5 mg tablet,delayed 5 mg PO ONCE #4 tab 03/21/21 release polyethylene glycol 3350 17 238 g PO ONCE #238 g 03/21/21 gram/dose oral powder Current Visit Medications: Current Medications Generic Name Dose Route Start Last Admin Trade Name Freq PRN Reason Stop Dose Admin Hyoscyamine Sulfate 0.125 mg 03/24/21 06:52 Hyoscyamine 0.125 Mg Sl/Oral/Chew SL DIRECTED PRN Ringer's Solution 1,000 mls @ 80 mls/hr 03/24/21 06:00 IV 04/20/21 23:59 INFUSION [facility] IV Miscellaneous Supplies 1 each 03/24/21 06:00 Iv Access IV 04/20/21 23:59 DIRECTED ANA Ondansetron HCl 4 mg 03/24/21 06:52 Ondansetron 4 Mg/2 Ml Vial IVP Q4H PRN PRN Nausea / Vomiting Sodium Chloride 0 ml 03/24/21 06:00 Normal Saline Flush 10 Ml Syr IV 04/20/21 23:59 PRN PRN Sodium Chloride 0 ml 03/24/21 06:00 Normal Saline 10 Ml Vial IJ 04/20/21 23:59 DIRECTED PRN Sterile Water 0 ml 03/24/21 06:00 Water,Injection,Sterile 10 Ml Vial IJ 04/20/21 23:59 DIRECTED PRN PFSH Active Problems Active Problems: Problem Status Onset Code 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 Neuropathy G62.9 Encounter to establish care Z76.89 Irregular heart rate I49.9 Encounter for screening colonoscopy Z12.11 Morbid obesity with BMI of 45.0-49.9, adult E66.01, Z68.42 Routine medical exam Z00.00 History of lung cancer Z85.118 History of endometrial cancer Obesity E66.9 Referral to medical nutrition therapy declined by patient Z53.29 Essential hypertension I10 Hyperglycemia R73.9 Lung mass 09/2018 R91.8 Type II diabetes mellitus E11.9 Uterine cancer C55 Anemia 03/06/13 D64.9 Postmenopausal bleeding 03/06/13 N95.0 Tubular adenoma of colon 11/08/17 D12.6 History of unilateral nephrectomy 09/14/17 Z90.5 Endometrial cancer C54.1 Family history of malignant neoplasm of endometrium 09/14/17 Z80.49 Medical History Medical History Anemia (03/06/13) Transfused 03/06/2013 Endometrial cancer Essential hypertension pt. denies this Family history of malignant neoplasm of endometrium (09/14/17) History of endometrial cancer History of lung cancer Pt. states it wasn't lung cancer it was metatatic uterine cancer in my lung History of unilateral nephrectomy (09/14/17) left Kidney donation Hyperglycemia Lung mass (09/2018) CT guided bx 10/21/18 LLL Obesity Obesity Postmenopausal bleeding (03/06/13) Referral to medical nutrition therapy declined by patient Tubular adenoma of colon (11/08/17) tubular and sessile serrated adenomas Type II diabetes mellitus Uterine cancer s/p TAHBSO 2012, Metastatic to lung 2018 Surgical History Surgical History Colonoscopy - MAC (11/08/17) History of nephrectomy History of total abdominal hysterectomy and bilateral salpingo-oophorectomy (~04/10/13) S/P lobectomy of lung (01/05/19) LLL Tobacco Smoking/Tobacco Use Status: Never Alcohol Alcohol Intake: current Alcohol intake frequency: a few times a month Alcohol type: beer and wine Substance Use Substance use: Never Substance use type: does not use Vital Signs and Lab Results Vital Signs Most Recent Vital Signs in EMR: Most Recent Vital Signs Temp Pulse Resp BP Pulse Ox 36.5 C 94 H 18 137/66 96 03/24/21 10:19 03/24/21 10:19 03/24/21 10:19 03/24/21 10:19 03/24/21 10:19 Lab Results Blood Type / Crossmatch: No Data to Display Complete Blood Count: No Data to Display Complete Metabolic Panel: No Data to Display Liver Function Panel: No Data to Display Coagulation Panel: No Data to Display Cardiac Panel: No Data to Display Arterial Blood Gas: No Data to Display Venous Blood Gas: No Data to Display Pancreas Panel: No Data to Display Thyroid Panel: No Data to Display Infectious Disease: No Data to Display Blood Cultures: No Data to Display Toxicology Panel: No Data to Display Anesthesia Assessment and Plan Anesthesia History Personal History: No History of Anesthesia Complications Family History: No Family History of Anesthesia Complications Exercise Tolerance Exercise Tolerance: Metabolic Equivalents>4 Cardiac & Pulmonary Exam Cardiac Exam: Normal S1/S2 Heart Sounds Pulmonary Exam: Clear Bilateral Breath Sounds Airway Exam Known Difficult Airway: No Mallampati Class: 2 Mouth Opening: Normal (> 3cm) Thyromental Distance: Greater than 3 cm Neck Range of Motion: Full ROM Neck Circumference: Normal Teeth Condition: Normal Dentition ASA Classification ASA Score: ASA 2 Emergency Case?: No NPO Status NPO Status: NPO Clears >2 hours, Solids >8 hours Anesthesia Plan Resuscitation Status: Full Code Anesthesia Technique: General Anesthesia Airway Planned: Natural Airway Monitors Used: Standard Monitors Preoperative Comments:: 65 yo female for colo, previous colo with adenomatous, sessile serrated, and hyperplastic polyps.
[2021-03-24] MEDS: Lactated Ringers 1,000 ML 80 ML IV (10:59)
[2021-03-24 11:00] VITALS: BMI 57.6
--- NOTE | 2021-03-24 11:25 | BOWEL_PTH ---
PATIENT: Myra Valencia LOC: MED U#:[id number] AGE/SX: 65/F ROOM: RE03/24/[address]: Vivien Grissom MD : 1955 BED: DIS: 03/24/2021 SPEC #: [id number] RECD: 03/24/21 12:50 STATUS: TESSIE REAreli #: [id number] VENECIA: 03/24/21 11:[address]: Vivien Grissom DEPT: Surgical Specimen RECD BY: Kate Spencer ENTERED: 03/24/21 12:51 SP TYPE: Bowel OTHR DR: Lindsay Ribeiro APRN Tissues: 1 - BIOPSY BOWEL 2 - BIOPSY BOWEL 3 - BIOPSY BOWEL Procedures: GROSS AND MICRO LEVEL 4 Comments: [id number]
[2021-03-24 11:47] VITALS: BP 123/59; PULSE 67; RESP 16; TEMP 36.2; O2SAT 97
--- NOTE | 2021-03-24 11:47 | W.ANESPOSTOP ---
Postoperative Evaluation Date, Time and Location Date Performed: 03/24/21 Time Performed: 11:47 Patient Location: Day Surgery Unit Vital Signs Most Recent Imported Vital Signs: Most Recent Vital Signs Temp Pulse Resp BP Pulse Ox 36.5 C 94 H 18 137/66 96 03/24/21 10:19 03/24/21 10:19 03/24/21 10:19 03/24/21 10:19 03/24/21 10:19 Most Recent Manually Entered Vital Signs: Adult Blood Pressure: 123/59 Heart Rate: 65 Respirations: 12 Oxygen Saturation (%): 97 Temperature (C): 36.2 C Pain Score (0-10 Scale): 0 Pain Score Most Recent Pain Score: Most Recent Pain Score Pain Level 0 03/24/21 10:19 Assessment Mental Status: Awake (Alert & Oriented to Patient Baseline) Airway and Respiratory Function: Patent airway with normal (patient baseline) respiratory exam Cardiovascular Function: Hemodynamically Stable Hydration Status: Adequately Hydrated Nausea & Vomiting: No Nausea or Vomiting Pain: Pt. Denies Any Pain Peripheral Nerve Block: Patient did not receive a nerve block
[2021-03-24 11:48] VITALS: BP 123/59; PULSE 65; RESP 12; TEMPC 36.2; O2SAT 97
[2021-03-24 12:12] VITALS: BP 124/66; PULSE 55; RESP 16; TEMP 36.1; O2SAT 98
== END 2021-03-24 12:42 | disposition home or self-care (01) ==
LOC: SUR 09:53
PROVIDERS: PCP Nurse Practitioner; Visit Provider Surgery
PROC: 0DJD8ZZ Inspection of Lower Intestinal Tract, Via Natural or Artificial Opening Endoscopic (ICD-10-PCS; CPT 45378; principal; 2021-03-24 10:30)
DX: Z12.11 Encounter for screening for malignant neoplasm of colon (principal); Z86.010 Personal history of colon polyps; K63.5 Polyp of colon; K57.30 Diverticulosis of large intestine without perforation or abscess without bleeding; D12.0 Benign neoplasm of cecum; D12.2 Benign neoplasm of ascending colon
CPT/HCPCS: 45380; 88305; J2001

== ENCOUNTER 2021-04-04 04:34 | Outpatient (CLI) | payer BC, SELFPAY ==
--- NOTE | 2021-04-04 08:28 | DI.MAMMO_ITS ---
Exam(s) MAMMO SCREENING EXAM: MAMMO SCREENING CLINICAL HISTORY: screening,Z12.39 TECHNIQUE: Mammograms were interpreted according to the usual protocol including computer analysis w [employer] CAD system, tomosynthesis and C-view imaging. COMPARISON: FINDINGS: The breasts are of moderate density with fairly symmetrical distribution of fibroglandular tissue. N o dominant mass or clumped microcalcification is identified in either breast. The current examinatio n is compared with previous examinations including January 2020 and there has been no gross interval katarzyna nge in appearance in comparison with the prior studies. IMPRESSION: No specific evidence of malignancy at this time. Routine screening examinations are suggested at yea rly intervals in this age group according to the ACS ACR guidelines. BI-RADS Category 1 - Negative Breast Density - Category B - Scattered areas of fibroglandular density
== END 2021-04-04 04:54 ==
PROVIDERS: PCP Nurse Practitioner; Visit Provider Nurse Practitioner
DX: Z12.31 Encounter for screening mammogram for malignant neoplasm of breast (principal)
CPT/HCPCS: 77063; 77067

== ENCOUNTER 2021-09-22 03:17 | Outpatient (CLI) | payer BC, SELFPAY ==
[2021-09-22 10:45] LABS: Source Nasal/Nares
[2021-09-22 23:37] LABS: COVID-19 PCR Negative (Negative)
== END 2021-09-22 03:18 | disposition home or self-care (01) ==
LOC: LBO 03:18
PROVIDERS: PCP Nurse Practitioner; Visit Provider Surgery
DX: Z20.822 Contact with and (suspected) exposure to COVID-19 (principal)
CPT/HCPCS: 87635

== ENCOUNTER 2021-09-24 09:54 | Day surgery (SDC) | payer BC, SELFPAY ==
--- NOTE | 2021-09-24 06:27 | COLE_ITS ---
Colonoscopy Report Date of procedure: 09/24/21 Pre-op diagnosis general: Hx of polyps Post-op diagnosis procedure note: same (and diverticulosis) Procedure: Colonoscopy with polypectomy Surgeon: Vivien Grissom Anesthesia Type: General LMA/ETT (Cr Mcnair, PATEL) Estimated blood loss (mL): 3 Pathology: other (ascending, transverse and sigmoid polyp) Complications: None Disposition: same day Indications: The patient is here for Colonoscopy pre-op. Her last screening was in February 2021 and was remarkable for tubular adenoma with high grade dysplasia. She has no family history of colon cancer. She has not had any bowel habit changes. -Discussed colonoscopy bowel prep as well as the procedure. Discussed possible complications of the procedure to include bleeding, pain, perforation, missed small lesion/polyp, sore throat, aspiration and adverse reaction to the medicati ons. Questions were answered to patient?s satisfaction. No guarantees were implied or given. P// Colonoscopy under sedation. Prep: Miralax/Dulcolax Procedure Start Time: 11:13 Procedure End Time: 11:43 Retraction Time: 15 minutes Findings: 4 small polyps Procedure Description: After informed consent was obtained the patient was taken to the procedure room and placed in a left decubitous position. Monitors were applied and a time out was done. The patients name, date of , procedure, allergies to medications and metal in their body was reviewed. The patient was then sedated. Once sedated and comfortable a rectal exam was done. External exam was normal. Internal exam revealed a normal sphincter tone and no palpable masses. The scope was then introduced and retro-flexed. No internal hemorrhoids, polyps or masses were identified on retro-flexion. The scope was then advanced to the cecum without difficulty. The ileocecal vlave and appendiceal orifice were identified. The prep was adequate. The scope was then slowly retracted over 15 minutes back into the rectum. Polyps were removed with cold forceps in the ascending colon, transverse colon and sigmoid colon. There was mild sigmoid diverticulosis noted. The scope was removed and the patient was woken up and taken back to Same day surgery in stable condition. The patient tolerated the procedure well and there were no immediate complications. Follow up: The patient should follow up in 3-5 years unless they develop changes in bowel habits or other new gastrointestinal complaints.
--- NOTE | 2021-09-24 06:29 | PDOC.DSDIS_ITS ---
Discharge Plan Disposition Patient Disposition: HOME Condition: Good Discharge Details Reason For Visit: Colonoscopy Attending Provider: Vivien Grissom Primary Care Provider: Lindsay Ribeiro Home Meds and New Rx's Prescriptions: Continued ascorbic acid (vitamin C) 100 mg tablet 100 mg PO DAILY RF: 0 cholecalciferol (vitamin D3) 1,000 unit capsule 1,000 unit PO DAILY RF: 0 letrozole 2.5 mg tablet 2.5 mg PO DAILY RF: 0 golo 2 tab PO DAILY RF: 0 ibuprofen 200 MG capsule 600 mg PO Q6H PRN PRNRF: 0 Discontinued polyethylene glycol 3350 17 gram/dose powder 238 g PO ONCE Qty: 238 RF: 0 bisacodyl [Dulcolax (bisacodyl)] 5 mg tablet,delayed release (DR/EC) 5 mg PO ONCE Qty: 4 RF: 0 Discharge Instructions Additional Instructions: Findings: 4 small polyps mild diverticulosis Follow up: 3-5 years Please call if you develop: fevers >101.5 Nausea or Vomiting Abdominal pain that is not transient Rectal bleeding that is more then a tbsp A hard abdomen and inability to pass gas DAY SURGERY UNIT POST ENDOSCOPY INSTRUCTIONS Instructions for everyone who is given Anesthesia: For your safety, please do the following for the next 24 Hours: a. Do not drive or operate dangerous equipment b. Do not drink alcohol beverages or use any recreational drugs for the first 24 hours or while taking pain medications. The medications in your body may have a reaction that can be dangerous. c. Do not make any important decisions or sign any important papers 1. Generally there are no restrictions on your activity after a day or so has gone by, but you may feel a bit fatigued for a few days. 2. After you arrive home you may have a light meal and return to a normal diet as you can tolerate it without feeling sick to your stomach. 3. After surgery, you may feel pain or discomfort. This should be only tra nsient, but if it persists please contact your doctor. 4. If there are any questions regarding the findings of your procedure, please feel free to contact your doctor. 6. If you are unable to contact your doctor with a problem, contact the hospital at [phone]. 7. Continue all your regular medications unless directed otherwise. I understand the above instructions and have no questions. Signature of Patient or Responsible Adult Escort Date/Time Name of Responsible Adult Escort Signature of Nurse Date/Time Activity:: Activity as Tolerated Diet:: high fiber diet Discharge Orders Discharge Orders: Discharge Order (Routine); Ordered 09/24/21 Ordered By: Vivien Grissom
[2021-09-24 10:21] VITALS: BP 135/79; PULSE 92; RESP 20; TEMP 36.5; O2SAT 96
[2021-09-24] MEDS: Lactated Ringers 1,000 ML 80 ML IV (10:40)
--- NOTE | 2021-09-24 10:45 | W.ANESPRE ---
General Info Date of Service Date Performed: 09/24/21 Height: 4 ft 10.5 in Weight: 88 kg Body Mass Index (BMI): 39.8 Surgical Procedure: Operation Date: 09/24/21 11:05 Proposed Procedures Side Surgeon p Mildred Grissom MD Meds Allergies and Home Medications Allergies Allergy/AdvReac Type Severity Reaction Status Date / Time adhesive Allergy Intermediate Bubble-type Verified 09/24/21 10:16 rash oxycodone HCl [From Percocet] AdvReac Severe Nausea Verified 09/24/21 10:16 empagliflozin AdvReac Intermediate Other (See Unverified 09/24/21 10:16 [From Jardiance] Comment) Environmental Allergies Allergy Intermediate Watery Uncoded 09/24/21 10:16 eyes, sneezing Home Medication Medication Instructions Recorded ibuprofen 600 mg PO Q6H PRN PRN 05/03/13 ascorbic acid (vitamin C) 100 mg 100 mg PO DAILY 02/17/19 tablet cholecalciferol (vitamin D3) 25 1,000 unit PO DAILY 02/17/19 mcg (1,000 unit) capsule letrozole 2.5 mg tablet 2.5 mg PO DAILY 07/22/20 golo 2 tab PO DAILY 07/15/21 bisacodyl 5 mg tablet,delayed 5 mg PO ONCE #4 tab 09/12/21 release polyethylene glycol 3350 17 238 g PO ONCE #238 g 09/12/21 gram/dose oral powder Current Visit Medications: Current Medications Generic Name Dose Route Start Last Admin Trade Name Freq PRN Reason Stop Dose Admin Hyoscyamine Sulfate 0.125 mg 09/24/21 06:29 Hyoscyamine 0.125 Mg Sl/Oral/Chew SL DIRECTED PRN Ringer's Solution 1,000 mls @ 80 mls/hr 09/24/21 06:00 IV 09/29/21 23:59 INFUSION ANA IV Miscellaneous Supplies 1 each 09/24/21 06:00 Iv Access IV 09/29/21 23:59 DIRECTED ANA Ondansetron HCl 4 mg 09/24/21 06:29 Ondansetron 4 Mg/2 Ml Vial IVP Q4H PRN PRN Nausea / Vomiting Sodium Chloride 0 ml 09/24/21 06:00 Normal Saline Flush 10 Ml Syr IV 09/29/21 23:59 PRN PRN Sodium Chloride 0 ml 09/24/21 06:00 Normal Saline 10 Ml Vial IJ 09/29/21 23:59 DIRECTED PRN Sterile Water 0 ml 09/24/21 06:00 Water,Injection,Sterile 10 Ml Vial IJ 09/29/21 23:59 DIRECTED PRN PFSH Active Problems Active Problems: Problem Status Onset Code Tubular adenoma ~02/2021 D36.9 Colon polyp, hyperplastic ~02/2021 K63.5 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 Neuropathy G62.9 Encounter to establish care Z76.89 Irregular heart rate I49.9 Encounter for screening colonoscopy Z12.11 Morbid obesity with BMI of 45.0-49.9, adult E66.01, Z68.42 Routine medical exam Z00.00 History of lung cancer Z85.118 History of endometrial cancer Obesity E66.9 Referral to medical nutrition therapy declined by patient Z53.29 Essential hypertension I10 Hyperglycemia R73.9 Lung mass 09/2018 R91.8 Type II diabetes mellitus E11.9 Uterine cancer C55 Anemia 03/06/13 D64.9 Postmenopausal bleeding 03/06/13 N95.0 Tubular adenoma of colon 11/08/17 D12.6 History of unilateral nephrectomy 09/14/17 Z90.5 Endometrial cancer C54.1 Family history of malignant neoplasm of endometrium 09/14/17 Z80.49 Medical History Medical History Obesity Medical History Comments:: paternal grandmother took a long time to wake up Surgical History Surgical History Colonoscopy - MAC (11/08/17) History of colonoscopy (~02/2021) History of nephrectomy History of total abdominal hysterectomy and bilateral salpingo-oophorectomy (~04/10/13) S/P lobectomy of lung (01/05/19) LLL Tobacco Smoking/Tobacco Use Status: Never Alcohol Alcohol Intake: current Alcohol intake frequency: a few times a month Alcohol type: wine Substance Use Substance use: Never Substance use type: does not use Details: alcohol: months ago Vital Signs and Lab Results Vital Signs Most Recent Vital Signs in EMR: Most Recent Vital Signs Temp Pulse Resp BP Pulse Ox 36.5 C 92 H 20 135/79 96 09/24/21 10:21 09/24/21 10:21 09/24/21 10:21 09/24/21 10:21 09/24/21 10:21 Lab Results Blood Type / Crossmatch: No Data to Display Complete Blood Count: No Data to Display Complete Metabolic Panel: No Data to Display Liver Function Panel: No Data to Display Coagulation Panel: No Data to Display Cardiac Panel: No Data to Display Arterial Blood Gas: No Data to Display Venous Blood Gas: No Data to Display Pancreas Panel: No Data to Display Thyroid Panel: No Data to Display Infectious Disease: Coronavirus (COVID-19)(PCR) Negative (Negative) 09/22/21 09:02 09/22/21 Coronavirus 2019 Source Nasal/Nares 09/22/21 09:02 09/22/21 Blood Cultures: No Data to Display Toxicology Panel: No Data to Display Anesthesia Assessment and Plan Anesthesia History Personal History: No History of Anesthesia Complications Family History: No Family History of Anesthesia Complications Exercise Tolerance Exercise Tolerance: Metabolic Equivalents>4 Pertinent Negatives Pertinent Negatives: No Symptoms of GERD Cardiac & Pulmonary Exam Cardiac Exam: Normal S1/S2 Heart Sounds Pulmonary Exam: Clear Bilateral Breath Sounds Implantable Cardiac Device Does patient have a Pacemaker or an ICD?: No Airway Exam Known Difficult Airway: No Mallampati Class: 2 Mouth Opening: Normal (> 3cm) Thyromental Distance: Greater than 3 cm Neck Range of Motion: Full ROM Neck Circumference: Normal Teeth Condition: Normal Dentition Airway Comments: 4 broken molars, posterior in all four quadrants. 11 and 21 rebuilt. ASA Classification ASA Score: ASA 3 Emergency Case?: No NPO Status NPO Status: NPO Clears >2 hours, Solids >8 hours Anesthesia Plan Resuscitation Status: Full Code Anesthesia Technique: General Anesthesia Airway Planned: Natural Airway Monitors Used: Standard Monitors
[2021-09-24 11:18] VITALS: BMI 39.8
--- NOTE | 2021-09-24 11:28 | BOWEL_PTH ---
PATIENT: Myra Valencia LOC: MED U#:[id number] AGE/SX: 66/F ROOM: RE09/24/[address]: Vivien Grissom MD : [id number] BED: DIS: 09/24/2021 SPEC #: [id number] RECD: 09/24/21 13:10 STATUS: TESSIE SLOAN #: [id number] VENECIA: 09/24/21 11:[address]: Vivien Grissom DEPT: Surgical Specimen RECD BY: Kate Spencer ENTERED: 09/24/21 13:12 SP TYPE: Bowel OTHR DR: Lindsay Ribeiro APRN Tissues: 1 - BIOPSY BOWEL 2 - BIOPSY BOWEL 3 - BIOPSY BOWEL Procedures: GROSS AND MICRO LEVEL 4 IMMUNOPEROXIDASE STAIN Comments: [id number]
--- NOTE | 2021-09-24 11:52 | W.ANESPOSTOP ---
Postoperative Evaluation Date, Time and Location Date Performed: 09/24/21 Time Performed: 11:53 Patient Location: Day Surgery Unit Vital Signs Most Recent Imported Vital Signs: Most Recent Vital Signs Temp Pulse Resp BP Pulse Ox 36.5 C 92 H 20 135/79 96 09/24/21 10:21 09/24/21 10:21 09/24/21 10:21 09/24/21 10:21 09/24/21 10:21 Most Recent Manually Entered Vital Signs: Adult Blood Pressure: 110/59 Heart Rate: 72 Respirations: 10 Oxygen Saturation (%): 97 Temperature (C): 36.7 C Pain Score (0-10 Scale): 0 Pain Score Most Recent Pain Score: Most Recent Pain Score Pain Level 0 09/24/21 10:21 Assessment Mental Status: Awake (Alert & Oriented to Patient Baseline) Airway and Respiratory Function: Patent airway with normal (patient baseline) respiratory exam Cardiovascular Function: Hemodynamically Stable Hydration Status: Adequately Hydrated Nausea & Vomiting: No Nausea or Vomiting Pain: Pt. Denies Any Pain Peripheral Nerve Block: Patient did not receive a nerve block
[2021-09-24 11:53] VITALS: BP 110/59; PULSE 72; RESP 20; TEMP 36.6; O2SAT 98
[2021-09-24 11:54] VITALS: BP 110/59; PULSE 72; RESP 10; TEMPC 36.7; O2SAT 97
[2021-09-24 12:16] VITALS: BP 128/72; PULSE 65; RESP 20; TEMP 36.1; O2SAT 97
== END 2021-09-24 12:45 | disposition home or self-care (01) ==
LOC: SUR 09:54
PROVIDERS: PCP Nurse Practitioner; Visit Provider Surgery
PROC: 0DJD8ZZ Inspection of Lower Intestinal Tract, Via Natural or Artificial Opening Endoscopic (ICD-10-PCS; CPT 45378; principal; 2021-09-24 11:00)
DX: Z09 Encounter for follow-up examination after completed treatment for conditions other than malignant neoplasm (principal); D12.3 Benign neoplasm of transverse colon; K57.30 Diverticulosis of large intestine without perforation or abscess without bleeding; Z86.010 Personal history of colon polyps; E11.9 Type 2 diabetes mellitus without complications; Z85.42 Personal history of malignant neoplasm of other parts of uterus; I10 Essential (primary) hypertension; K63.5 Polyp of colon
CPT/HCPCS: 45380; 88305; 88361; J2001

== ENCOUNTER 2021-10-03 01:46 | Outpatient (CLI) | payer BC, SELFPAY ==
[2021-10-03 08:01] LABS: HCT 45.4 % (36.0-46.0); HGB 14.1 g/dL (11.2-15.7); MCH 28.2 pg (27.0-33.0); MCHC 31.1 % (32.0-36.0); MCV 90.8 fL (80-95); MPV 10.5 fL (8.0-11.0); Platelet Count 198 10^3/uL (130-400); RDW 12.5 % (11.7-14.6); RDW-SD 41.6 fL; WBC 6.15 10^3/uL (4.4-10.8)
[2021-10-03 08:20] LABS: Hemoglobin A1C 7.1 % (<5.7)
[2021-10-03 09:02] LABS: ALT 23 U/L (14-59); AST 13 U/L (15-37); Albumin 3.7 g/dL (3.4-5.0); Alkaline Phosphatase 82 U/L (46-116); Anion Gap 8.3 mmol/L (3-11); BUN 22 mg/dL (7-18); Bilirubin, Total 0.4 mg/dL (0.2-1.0); CO2 30.7 mmol/L (21.0-32.0); Calcium 9.1 mg/dL (8.5-10.1); Calculated LDL 110 mg/dL (<100); Chloride 107 mmol/L (98-107); Cholesterol 198 mg/dL (<200); Estimated GFR 55.47 (mL/min/1.73m2); Glucose 165 mg/dL (74-106); HDL Cholesterol 71 mg/dL (40-60); Potassium 4.4 mmol/L (3.5-5.1); Sodium 146 mmol/L (136-145); Total Protein 6.9 g/dL (6.4-8.2); Triglyceride 87 mg/dL (<150)
== END 2021-10-03 01:47 | disposition home or self-care (01) ==
LOC: LBO 01:46
PROVIDERS: PCP Nurse Practitioner; Visit Provider Nurse Practitioner
DX: E11.9 Type 2 diabetes mellitus without complications (principal); I10 Essential (primary) hypertension
CPT/HCPCS: 36415; 80053; 80061; 85027; 82043; 82570; 83036

== ENCOUNTER → 2022-03-10 01:44 | Outpatient (CLI) | payer BC, SELFPAY ==
--- NOTE | 2022-03-10 07:15 | DI.MAMMO_ITS ---
Exam(s) US BREAST RT LIMITED MG MAMMO DIAGNOSTIC BI EXAM: MG MAMMO DIAGNOSTIC BI and U/S breast RT limited CLINICAL HISTORY: diagnostic, tender lump right breast,2 oclock,n63.0. TECHNIQUE: Craniocaudal and mediolateral oblique Full Field Digital Mammography views with Computer Aided Diagnosis followed by Tomosynthesis and right breast ultrasound. COMPARISON: Comparison is made with prior examinations. FINDINGS: Mammography/Tomosynthesis: Masses/Architectural Distortion: None seen. Microcalcifictions: No suspicious pleomorphic-type are seen. Skin Thickening/Nipple Retraction: None. Limited right breast US: Echotexture: Normal appearance of the glandular tissue. Shadowing: No suspicious foci. Cyst: There is a 0.7 cm cyst at the 3 o'clock position of the right breast 5 cm from the nipple. Thi s is in the area of palpable concern. Solid lesions: None seen. Ductal dilation: None. IMPRESSION: 1. No evidence of malignancy is noted. 2. Unless there is more urgent need, follow-up screening mammography is recommended, as per [employer] guidelines. 3. The findings were discussed with the patient on the date of the examination. BI-RADS Category 2 - Benign Findings Breast Density - Category B - Scattered areas of fibroglandular density Breast density Category C or D implies that the patient has dense breast tissue. Dense breast tissue can make it harder to find cancer on a mammogram. Dense breast tissue is also associated with an incr eased risk of breast cancer. This information about the result of the mammogram report was provided to the patient to raise their awareness. Use this report when you speak with the patient about their risks for breast cancer, which includes their family history. At that time, you may recommend additional screening tests (Ultrasoun d or MRI) as these tests may add significant information. A negative radiographic report should not delay biopsy if a dominant or clinically suspicious mass is present. Up to ten percent of cancers are not identified on mammography. A negative report may reinforce clinical impression. Adenosis and dense breasts may obscure an underlying neoplasm. False positive reports average 6 to 10%. Patient will receive a letter notifying them of these results.
== END ==
PROVIDERS: PCP Nurse Practitioner; Visit Provider Nurse Practitioner
DX: C78.02 Secondary malignant neoplasm of left lung (principal); N63.12 Unspecified lump in the right breast, upper inner quadrant; Z12.31 Encounter for screening mammogram for malignant neoplasm of breast; Z85.118 Personal history of other malignant neoplasm of bronchus and lung; C80.1 Malignant (primary) neoplasm, unspecified; R92.8 Other abnormal and inconclusive findings on diagnostic imaging of breast
CPT/HCPCS: 76642; 77062; 77066; G0279

== ENCOUNTER 2022-06-09 02:40 | Outpatient (CLI) | payer BC, SELFPAY ==
[2022-06-09 12:29] LABS: ALT 24 U/L (14-59); AST 15 U/L (15-37)
== END 2022-06-09 02:41 | disposition home or self-care (01) ==
LOC: LBO 02:40
PROVIDERS: PCP Nurse Practitioner; Visit Provider Dermatology
DX: B35.1 Tinea unguium (principal); Z79.899 Other long term (current) drug therapy
CPT/HCPCS: 36415; 84450; 84460

== ENCOUNTER 2022-07-09 05:03 | Outpatient (CLI) | payer BC, SELFPAY ==
[2022-07-09 16:17] LABS: ALT 18 U/L (14-59); AST 15 U/L (15-37)
== END 2022-07-09 05:04 | disposition home or self-care (01) ==
LOC: LBO 05:03
PROVIDERS: PCP Nurse Practitioner; Visit Provider Dermatology
DX: Z79.899 Other long term (current) drug therapy (principal)
CPT/HCPCS: 36415; 84450; 84460

== ENCOUNTER 2022-07-29 03:24 | Outpatient (CLI) | payer BC, SELFPAY ==
[2022-07-29 13:04] LABS: ALT 24 U/L (14-59); AST 16 U/L (15-37)
== END 2022-07-29 03:25 | disposition home or self-care (01) ==
LOC: LBO 03:25
PROVIDERS: PCP Nurse Practitioner; Visit Provider Dermatology
DX: B35.1 Tinea unguium (principal); Z79.899 Other long term (current) drug therapy
CPT/HCPCS: 36415; 84450; 84460

== ENCOUNTER 2023-03-23 02:32 | Outpatient (CLI) | payer BC, SELFPAY ==
--- NOTE | 2023-03-23 06:45 | DI.MAMMO_ITS ---
Exam(s) MAMMO SCREENING EXAM: MAMMO SCREENING CLINICAL HISTORY: screening,z12.39. TECHNIQUE: Bilateral full field digital CC and MLO mammographic images were obtained with 3D tomosyn thesis and utilizing computer aided detection (CAD). COMPARISON: Prior mammograms were reviewed. Prior breast ultrasound of 03/10/2022 was also reviewed. FINDINGS: There has been no significant change in the appearance and distribution of the fibroglandular tissue. Small nodular density in the medial retroareolar region of the left breast is unchanged from at least 2016 therefore benign. There are no new significant mammographic findings in the left breast. In the right breast on the 3D MLO imaging there are 2 adjacent nodules located laterally, with the la rger of these 2 nodules measuring 4 x 3 mm and located 5 cm in from the nipple on the 3D MLO view. Another similar size nodular density is seen slightly higher up in the MLO view, lateral of center. Compression views and ultrasound recommended No new architectural distortion or skin thickening-traction. There are no malignant-appearing microc alcification groups. IMPRESSION: 1. No radiographic evidence of malignancy in left breast. 2. Right breast nodules. Spot compression views and breast ultrasound recommended. BI-RADS Category 0 - Assessment Incomplete: Need additional imaging evaluation Breast Density - Category B - Scattered areas of fibroglandular density Breast density Category C or D implies that the patient has dense breast tissue. Dense breast tissue can make it harder to find cancer on a mammogram. Dense breast tissue is also associated with an incr eased risk of breast cancer. This information about the result of the mammogram report was provided to the patient to raise their awareness. Use this report when you speak with the patient about their risks for breast cancer, which includes their family history. At that time, you may recommend additional screening tests (Ultrasoun d or MRI) as these tests may add significant information. A negative radiographic report should not delay biopsy if a dominant or clinically suspicious mass is present. Up to ten percent of cancers are not identified on mammography. A negative report may reinforce clinical impression. Adenosis and dense breasts may obscure an underlying neoplasm. False positive reports average 6 to 10%. Patient will receive a letter notifying them of these results.
== END 2023-03-23 02:52 ==
LOC: DI 02:32
PROVIDERS: PCP Nurse Practitioner; Visit Provider Nurse Practitioner
DX: Z12.31 Encounter for screening mammogram for malignant neoplasm of breast (principal)
CPT/HCPCS: 77063; 77067

== ENCOUNTER 2023-03-25 02:58 | Outpatient (CLI) | payer BC, SELFPAY ==
--- NOTE | 2023-03-25 | DI.MAMMO_ITS ---
Exam(s) MG MAMMO SCREEN CALL BACK UNI US BREAST RT COMPLETE EXAM: MG MAMMO SCREEN CALL BACK UNI-RIGHT AND COMPLETE RIGHT BREAST ULTRASOUND CLINICAL HISTORY: F/U MAMMO, R92.8,2 NODULES. TECHNIQUE: Unilateral RIGHT BREAST spot mammographic images obtained with 3D tomosynthesisand utiliz ing computer aided detection (CAD). . Complete RIGHT breast Ultrasound was also performed, including all 4 quadrants, the retroareolar ziggy on, and the ipsilateral axilla. COMPARISON: Prior mammograms were reviewed. Prior ultrasound of 03/10/2022 also reviewed. This add itional imaging was performed due to findings described on the recent screening mammogram of 03/23/20 23. FINDINGS: DIAGNOSTIC MAMMOGRAM: Additional mammographic views performed todaydo not completely dissipate the nodules.We proceeded wit h ultrasound. COMPLETE RIGHT BREAST ULTRASOUND: Ultrasound performed today reveals a tiny 2 millimeter benign microcyst at the 4 o'clock position.. At the 8 o'clock position there is another tiny 2 millimeter microcyst. This appears to correspond t o 1 of the findings on the mammogram. At the 10 o'clock position there is a benign 4 millimeter microcyst which may correspond to 1 of the findings on the mammogram. Most importantly, there are no solid lesions nor worrisome areas of decreased through transmission in all 4 quadrants. Scanning of the ipsilateral axilla reveals no significant adenopathy. IMPRESSION: 1. Benign-appearing right breast findings as described above Appropriate follow-up is repeat right breast mammogram in 6 months. The patient was informed of these findings and recommendations prior to leaving the department today. BI-RADS Category 3 - 6 month - Probably Benign Finding: Recommend follow-up mammography in 6 months Breast Density - Category B - Scattered areas of fibroglandular density Breast density Category C or D implies that the patient has dense breast tissue. Dense breast tissue can make it harder to find cancer on a mammogram. Dense breast tissue is also associated with an incr eased risk of breast cancer. This information about the result of the mammogram report was provided to the patient to raise their awareness. Use this report when you speak with the patient about their risks for breast cancer, which includes their family history. At that time, you may recommend additional screening tests (Ultrasoun d or MRI) as these tests may add significant information. A negative radiographic report should not delay biopsy if a dominant or clinically suspicious mass is present. Up to ten percent of cancers are not identified on mammography. A negative report may reinforce clinical impression. Adenosis and dense breasts may obscure an underlying neoplasm. False positive reports average 6 to 10%. Patient will receive a letter notifying them of these results.
== END 2023-03-25 03:18 ==
LOC: DI 02:58
PROVIDERS: PCP Nurse Practitioner; Visit Provider Nurse Practitioner
DX: Z12.31 Encounter for screening mammogram for malignant neoplasm of breast (principal); R92.8 Other abnormal and inconclusive findings on diagnostic imaging of breast
CPT/HCPCS: 76642; 77063; 77067

== ENCOUNTER 2023-05-12 03:22 | Outpatient (CLI) | payer BC, SELFPAY ==
[2023-05-12 07:13] LABS: Abs Immature Grans 0.02 10^3/uL (0.0-0.06); Absolute Basophil Count 0.02 10^3/uL (0.0-0.2); Absolute Eosinophil Count 0.11 10^3/uL (0.0-0.7); Absolute Lymphocyte Count 1.32 10^3/uL (1.2-3.4); Absolute Monocyte Count 0.55 10^3/uL (0.1-0.8); Absolute Neutrophil Count 4.06 10^3/uL (1.2-6.7); Basophils % 0.3; Eosinophils % 1.8; HCT 42.6 % (36.0-46.0); HGB 13.5 g/dL (11.2-15.7); Immature Grans % 0.3; Lymphocytes % 21.7; MCH 28.2 pg (27.0-33.0); MCHC 31.7 % (32.0-36.0); MCV 89 fL (80-95); MPV 10.7 fL (8.0-11.0); Neutrophils % 66.9; Platelet Count 190 10^3/uL (130-400); RBC 4.79 10^6/uL (3.93-5.22); RDW 12.6 % (11.7-14.6); RDW-SD 41.2 fL; WBC 6.08 10^3/uL (4.4-10.8)
[2023-05-12 08:25] LABS: ALT 28 U/L (14-59); AST 17 U/L (15-37); Albumin 3.5 g/dL (3.4-5.0); Alkaline Phosphatase 77 U/L (46-116); Anion Gap 6.3 mmol/L (3-11); BUN 16 mg/dL (7-18); Bilirubin, Total 0.5 mg/dL (0.2-1.0); CO2 29.7 mmol/L (21.0-32.0); Calcium 9.1 mg/dL (8.5-10.1); Calculated LDL 102 mg/dL (<100); Chloride 107 mmol/L (98-107); Cholesterol 179 mg/dL (<200); Estimated GFR 61.75 (mL/min/1.73m2); Glucose 144 mg/dL (74-106); HDL Cholesterol 60 mg/dL (40-60); Potassium 3.8 mmol/L (3.5-5.1); Sodium 143 mmol/L (136-145); Total Protein 7.1 g/dL (6.4-8.2); Triglyceride 89 mg/dL (<150)
[2023-05-13 10:23] LABS: Hepatitis C Ab w Rflx HCV PCR Negative (Negative)
== END 2023-05-12 03:23 | disposition home or self-care (01) ==
LOC: LBO 03:22
PROVIDERS: Absent Provider Nurse Practitioner; PCP Nurse Practitioner; Visit Provider Nurse Practitioner
DX: Z11.59 Encounter for screening for other viral diseases (principal); C78.02 Secondary malignant neoplasm of left lung; E11.9 Type 2 diabetes mellitus without complications
CPT/HCPCS: 36415; 80053; 80061; 86803; 85025

== ENCOUNTER → 2023-09-21 03:15 | Outpatient (CLI) | payer BC, SELFPAY ==
--- NOTE | 2023-09-21 07:15 | DI.MAMMO_ITS ---
Exam(s) MAMMO DIAGNOSTIC UNI EXAM: MAMMO DIAGNOSTIC UNI CLINICAL HISTORY: f/u mammo,6 MO F/U,R92.8,ABNL RT BREAST. TECHNIQUE: Craniocaudal and mediolateral oblique Full Field Digital Mammography views of the right b reast with Computer Aided Diagnosis followed by Tomosynthesis. COMPARISON: Comparison is made with prior examinations. FINDINGS: Mammography/Tomosynthesis: Masses/Architectural Distortion: The small well-circumscribed nodules are unchanged. No new nodules are seen. No areas of architectural distortion are present. Microcalcifictions: No suspicious pleomorphic-type are seen. Skin Thickening/Nipple Retraction: None. IMPRESSION: 1. No evidence of malignancy is noted. 2. Unless there is more urgent need, follow-up screening mammography is recommended, as per [place] [employer] guidelines. 3. The findings were discussed with the patient on the date of the examination. BI-RADS Category 2 - Benign Findings Breast Density - Category B - Scattered areas of fibroglandular density Breast density Category C or D implies that the patient has dense breast tissue. Dense breast tissue can make it harder to find cancer on a mammogram. Dense breast tissue is also associated with an incr eased risk of breast cancer. This information about the result of the mammogram report was provided to the patient to raise their awareness. Use this report when you speak with the patient about their risks for breast cancer, which includes their family history. At that time, you may recommend additional screening tests (Ultrasoun d or MRI) as these tests may add significant information. A negative radiographic report should not delay biopsy if a dominant or clinically suspicious mass is present. Up to ten percent of cancers are not identified on mammography. A negative report may reinforce clinical impression. Adenosis and dense breasts may obscure an underlying neoplasm. False positive reports average 6 to 10%. Patient will receive a letter notifying them of these results.
== END ==
PROVIDERS: PCP Nurse Practitioner; Visit Provider Nurse Practitioner
DX: R92.8 Other abnormal and inconclusive findings on diagnostic imaging of breast (principal); Z12.31 Encounter for screening mammogram for malignant neoplasm of breast
CPT/HCPCS: 77061; 77065; G0279

== ENCOUNTER 2024-03-16 02:36 | Outpatient (CLI) | payer BC, SELFPAY ==
[2024-03-16 07:56] LABS: ALT 32 U/L (14-59); AST 14 U/L (15-37); Albumin 3.5 g/dL (3.4-5.0); Alkaline Phosphatase 78 U/L (46-116); Anion Gap 7.1 mmol/L (3-11); BUN 21 mg/dL (7-18); Bilirubin, Total 0.55 mg/dL (0.2-1.0); CO2 28.9 mmol/L (21.0-32.0); CREATININE 1.2 mg/dL (0.55-1.02); Calcium 8.8 mg/dL (8.5-10.1); Calculated LDL 99 mg/dL (<100); Chloride 108 mmol/L (98-107); Cholesterol 178 mg/dL (<200); Estimated GFR 49.31 (mL/min/1.73m2); Glucose 188 mg/dL (74-106); HDL Cholesterol 64 mg/dL (40-60); Potassium 3.9 mmol/L (3.5-5.1); Sodium 144 mmol/L (136-145); Total Protein 6.9 g/dL (6.4-8.2); Triglyceride 79 mg/dL (<150)
== END 2024-03-16 02:37 | disposition home or self-care (01) ==
LOC: LBO 02:36
PROVIDERS: PCP Nurse Practitioner; Referring Provider Nurse Practitioner; Visit Provider Nurse Practitioner
DX: E11.9 Type 2 diabetes mellitus without complications (principal)
CPT/HCPCS: 36415; 80053; 80061

== ENCOUNTER 2024-09-13 13:12 | Outpatient (CLI) | payer BC, SELFPAY ==
[2024-09-13 13:24] LABS: Anion Gap 5.5 mmol/L (3-11); BUN 20 mg/dL (7-18); CO2 30.5 mmol/L (21.0-32.0); CREATININE 1.1 mg/dL (0.55-1.02); Chloride 110 mmol/L (98-107); Estimated GFR 54.39 (mL/min/1.73m2); Glucose 171 mg/dL (74-106); Potassium 4.2 mmol/L (3.5-5.1); Sodium 146 mmol/L (136-145)
[2024-09-13 13:34] LABS: Calcium 9.2 mg/dL (8.5-10.1)
== END 2024-09-13 13:13 | disposition home or self-care (01) ==
LOC: LBO 13:13
PROVIDERS: PCP Nurse Practitioner; Visit Provider Nurse Practitioner
DX: N18.9 Chronic kidney disease, unspecified (principal)
CPT/HCPCS: 36415; 80048

== ENCOUNTER 2024-10-03 00:36 | Outpatient (CLI) | payer BC, SELFPAY ==
--- NOTE | 2024-10-03 12:45 | DI.MAMMO_ITS ---
Exam(s) MAMMO SCREENING EXAM: MAMMO SCREENING CLINICAL HISTORY: screening,z12.39 TECHNIQUE: Mammograms were interpreted according to the usual protocol including computer analysis w [email or web address] CAD system, tomosynthesis and C-view imaging. COMPARISON: 2015 through 2023 FINDINGS: The breasts are composed of mainly fatty density , Breast Density category A. No suspicious masses or suspicious microcalcifications are seen. Stable tiny nodules. No skin thickening or abnormal axillary lymph nodes are seen. There has been no significant change from prior exams. IMPRESSION: BI-RADS Category 2 - Benign Findings Yearly screening mammography is recommended. Breast Density - Category A, fatty density. A negative radiographic report should not delay biopsy if a dominant or clinically suspicious mass is present. Up to ten percent of cancers are not identified on mammography. A negative report may reinforce clinical impression. Adenosis and dense breasts may obscure an underlying neoplasm. False positive reports average 6 to 10%. Patient will receive a letter notifying them of these results.
== END 2024-10-03 00:56 ==
LOC: DI 00:36
PROVIDERS: PCP Nurse Practitioner; Visit Provider Nurse Practitioner
DX: Z12.31 Encounter for screening mammogram for malignant neoplasm of breast (principal); R92.313 Mammographic fatty tissue density, bilateral breasts; D24.9 Benign neoplasm of unspecified breast
CPT/HCPCS: 77063; 77067

== ENCOUNTER 2025-02-01 13:43 | Outpatient (CLI) | payer BC, SELFPAY ==
--- NOTE | 2025-02-01 13:30 | RT.EKG_ITS ---
APPROVED REPORT Exam: Resting ECG Reason for Exam: irregular heart rate Patient Location: O HR:69 bpm ECG Measurements Heart Rate 69 AXIS NM 148 P 47 QRSd 88 QRS -34 QT 381 T 19 QTc 408 Conclusion Sinus rhythm...normal P axis, V-rate 50- 99 Ventricular premature complex...V complex w/ short R-R interval Left axis deviation...QRS axis (-30,-90)
== END 2025-02-01 13:44 | disposition home or self-care (01) ==
LOC: DI.KIM 13:45
PROVIDERS: PCP Nurse Practitioner; Visit Provider Family Medicine
DX: I49.9 Cardiac arrhythmia, unspecified (principal); I25.10 Atherosclerotic heart disease of native coronary artery without angina pectoris
CPT/HCPCS: 93010

== ENCOUNTER 2025-02-23 09:56 | Outpatient (RCR) | payer BC, SELFPAY | END 2025-02-26 23:59 | disposition home or self-care (01) | LOC: CARDOPNVT 09:56 | PROVIDERS: PCP Nurse Practitioner; Referring Provider Nurse Practitioner; Visit Provider Internal Medicine Cardiovascular Disease | DX: I49.3 Ventricular premature depolarization (principal) | CPT/HCPCS: 93225; 93226 ==

== ENCOUNTER 2025-04-10 00:56 | Outpatient (CLI) | payer BC, SELFPAY ==
--- NOTE | 2025-04-10 08:24 | DI.US_ITS ---
APPROVED REPORT EXAM: Comprehensive 2D, Doppler, and color-flow Echocardiogram Patient Location: Out-Patient Activities Volunteer: Kaitlynn Palumbo RDCS (AE) Indications: PVCs Other Information Study Quality: Adequate Conclusion Normal left trickle wall thickness and chamber size. Ejection fraction is 55 to 60%. Wall motion is normal Normal right ventricular size and function Both atria are normal in size There are no structural valvular abnormalities Mild mitral regurgitation Estimated right ventricular systolic pressure is 27 mmHg Wall motion Left Ventricle The left ventricle is normal size. The left ventricular systolic function is normal. The left ventricular ejection fraction is within the normal range. There is normal left ventricular wall thickness. There is normal LV segmental wall motion. There is no ventricular septal defect visualized. LVEF is 55%. Right Ventricle The right ventricle is normal size. The right ventricular systolic function is normal. Atria The left atrium size is normal. The right atrium size is normal. The interatrial septum is intact with no evidence for an atrial septal defect. Aortic Valve The aortic valve is normal in structure. Aortic valve is trileaflet. There is no aortic valvular stenosis. No aortic regurgitation is present. Mitral Valve The mitral valve is normal in structure. No evidence of mitral valve stenosis. Mild mitral regurgitation. Tricuspid Valve The tricuspid valve is normal in structure. There is no tricuspid valve stenosis. Trace tricuspid regurgitation. The RVSP is 27.1 mmHg. Pulmonic Valve The pulmonary valve is normal in structure. There is no pulmonic valvular stenosis. Trace pulmonic regurgitation. Great Vessels The aortic root is normal in size. The ascending aorta is normal in size. Aortic arch is normal in caliber. IVC is normal in size and collapses >50% with inspiration. Pericardium There is no pericardial effusion. 2D Dimensions IVSD d PLAX 0.93 cm F: 0.6-1.0 Ao Root d 2.47 cm F: 2.7 - 3.3 LVPW d PLAX 0.94 cm F: 0.6 - 1.0 Ao Asc Diam d 3.10 cm F: 2.3 - 3.1 LVID d PLAX 4.10 cm F: 3.8 - 5.2 LVDs 2.94 cm F: 2.2 - 3.5 LV EF Teichholz 54.8 % FS 28.11 % LV EDV (Teich) 74.1 mL LV ESV (Teich) 33.4 mL M-Mode TAPSE 2.05 cm (M/F) >1.7 Auto EF LV EDV A4C 92.6 mL LV EDV A2C 82.3 mL LV EDV BP 92.7 mL LV ESV A4C 41.8 mL LV ESV A2C 36.7 mL LV ESV BP 40.1 mL LVEF(%) A4C 54.9 % LVEF(%) A2C 55.4 % LVEF(%) BP 56.8 % LV SV A4C 50.8 ml LV SV A2C 45.6 ml LV SV BP 52.6 ml LV CO A4C 3.3 L/min LV CO A2C 2.9 L/min LV CO BP 3.1 L/min HR A4C 65.80 BPM HR A2C 63.16 BPM LV EDV Index (BP) LA Volume LA Length A4C 4.5 cm LA Length A2C 4.4 cm LA Area A4C s 12.84 cm2 LA Area A2C s 12.14 cm2 LA Vol A4C A-L 31.32 mL LA Vol A2C A-L 28.43 mL LA Vol Biplane A-L 30.1 mL LA Vol/BSA A4C A-L LA Vol/BSA A2C A-L LA Vol/BSA BP A-L 16.4 mL/m2 LA Vol A4C MOD 29.5 mL LA Vol A2C MOD 27.1 mL LA Vol BP MOD 28.5 mL RA Volume RA Area A4C 8.5 cm2 RA ESV A4C (A-L) 16.5mL RA Vol/BSA A4C A-L RA Length A4C 3.8 cm RA ESV A4C (MOD) 15.1mL LV Diastology MV E' medial 0.061 (>0.07 m/s) MV E Vmax 0.77 (0.4-1.3 m/s) MV E/E' MED 12.69 (<14) MV A Vmax 0.85 (0.4-1.3 m/s) MV E' lateral 0.097 (>0.1 m/s) E/A Ratio 0.9 MV E/E' LAT 7.91 (<14) MV E' Average 0.079 m/s MV E/E'(average) 9.75 Aortic Valve AoV Vmax 1.43 m/s LVOT Vmax 0.97 m/s AoV Peak Grad 8.2 mmHg LVOT Peak Grad 3.7 mmHg AoV Area (Vmax) 1.95 cm2 LVOT VTI 0.250 m AoV VTI 0.338 m LVOT Mean Grad 2.1 mmHg AoV Mean Kali. 0.98 m/s LVOT SV 72.15 mL AoV Mean Grad 4.3 mmHg LVOT Diam s 1.90 cm AoV Area (VTI) 2.14 cm2 AV Regurg Peak Gr. 8.20 mmHg Velocity Ratio 0.68 Mitral Valve MV DT 187 (160-240 msec) MV Vmax TIPS 0.80 m/s MV Mean Grad 0.9 (<2mmHg) MV VTI 0.232 m Pulmonary Valve PV Vmax 0.90 (0.5-1.5 m/s) RVOT Vmax 0.66 m/s PV Peak Grad 3.3 mmHg RVOT Peak Gr. 1.7 mmHg PV Mean Kali 0.63 m/s RVOT VTI 0.127 m PV Mean Grad 1.8 mmHg RVOT Mean Gr. 1.1 mmHg Tricuspid Valve RA Pressure 3.00 mmHg TR Vmax 2.46 m/s TV S' 0.09 m/s TR Peak Grad 24.1 mmHg RVSP (TR) 27.1 mmHg
== END 2025-04-10 01:16 ==
LOC: DI 00:56
PROVIDERS: PCP Nurse Practitioner
DX: I49.3 Ventricular premature depolarization (principal)
CPT/HCPCS: 93306